=== PATIENT | female | born 1975 | race Caucasian/White ===

== ENCOUNTER → 2022-02-22 09:31 | Outpatient (BNVA) | payer MEDICAID, SELFPAY | PROVIDERS: Referring Provider Internal Medicine; Visit Provider Podiatrist Foot & Ankle Surgery | DX: S82.402A Unspecified fracture of shaft of left fibula, initial encounter for closed fracture (principal); W01.0XXA Fall on same level from slipping, tripping and stumbling without subsequent striking against object, initial encounter; R60.9 Edema, unspecified; E11.9 Type 2 diabetes mellitus without complications | CPT/HCPCS: 73610; 99203 ==

== ENCOUNTER 2022-02-22 10:49 | Outpatient (CLI) | payer MEDICAID, SELFPAY | END 2022-02-22 10:50 | disposition home or self-care (01) | LOC: SPT 10:50 | PROVIDERS: Visit Provider Podiatrist Foot & Ankle Surgery | DX: Z46.89 Encounter for fitting and adjustment of other specified devices (principal); M25.572 Pain in left ankle and joints of left foot | CPT/HCPCS: 97760; L4361 ==

== ENCOUNTER → 2022-03-15 10:20 | Outpatient (BNVA) | payer MEDICAID, SELFPAY | PROVIDERS: Visit Provider Podiatrist Foot & Ankle Surgery | DX: S82.402A Unspecified fracture of shaft of left fibula, initial encounter for closed fracture (principal); X58.XXXA Exposure to other specified factors, initial encounter; R60.9 Edema, unspecified; E11.9 Type 2 diabetes mellitus without complications; Z79.4 Long term (current) use of insulin | CPT/HCPCS: 73610; 99213 ==

== ENCOUNTER 2022-03-18 00:55 | Emergency (ER) | payer MEDICAID, SELFPAY ==
[2022-03-18 00:57] VITALS: BMI 43.8
[2022-03-18 01:00] VITALS: BP 128/87; PULSE 92; RESP 16; TEMP 37.1; O2SAT 96
--- NOTE | 2022-03-18 01:00 | ECG_ITS ---
[facility] Test Date: 2022-03-18 Pat Name: Cat Cartagena Department: Room: Gender: Female Algology Teacher: : 1975 Requested By: Jeff Espinoza Order Number: [id number] Milena MD: Susan Cedillo M.D. Measurements Intervals [place] Rate: 93 P: 26 [place]: 180 QRS: 30 QRSD: 101 T: 48 QT: 394 QTc: 492 Interpretive Statements SINUS RHYTHM POSSIBLE RIGHT VENTRICULAR CONDUCTION DELAY [RSR (QR) IN V1/V2] INTERPRETATION BASED ON A DEFAULT AGE OF 40 YEARS No previous ECG available for comparison Electronically Signed On 03-18-2022 22:56:21 CDT by Susan Cedillo M.D. [id number] f
--- NOTE | 2022-03-18 01:06 | XRR_ITS ---
PROCEDURE INFORMATION: Exam: XR Chest Exam date and time: 03/18/2022 1:34 AM Age: 46 years old Clinical indication: Pain; Chest pressure; Additional info: Cp TECHNIQUE: Imaging protocol: Radiologic exam of the chest. Views: 1 view. COMPARISON: No relevant prior studies available. FINDINGS: Lungs: Layering left pleural effusion cannot be excluded. Similarly, layering smaller right pleural effusion cannot be excluded. Alternatively the opacities along the left more than right lower lobes could be external due to superimposition of shadows. Mild bibasilar opacities may represent atelectasis. Decreased lung volumes and bronchovascular crowding. Suspected mild increased pulmonary vascularity increased pulmonary vascular hilar shadows.. Pleural spaces: Space No pneumothorax. Heart/Mediastinum: The cardiomediastinal silhouette is mildly enlarged on portable view. Bones/joints: Unremarkable. XR/XR chest 1V portable [id number] IMPRESSION: Please see findings.
[2022-03-18 01:13] LABS: Basophils # 0.1 10^3/uL (0.0-0.1); Basophils % 0.6 %; Eosinophils # 0.3 10^3/uL (0.0-0.8); Eosinophils % 3.9 %; Hemoglobin 13.2 g/dL (11.5-15.3); Lymphocytes # 2.3 10^3/uL (0.8-4.8); Lymphocytes % 29.4 %; Mean Corpuscular Hemoglobin 28.4 pg (28.0-34.0); Mean Corpuscular Volume 86.2 fl (81-99); Mean Platelet Volume 11.6 fL (7.4-10.4); Monocytes # 0.6 10^3/uL (0.2-0.9); Monocytes % 7.8 %; Neutrophils # 4.48 10^3/uL (1.8-7.7); Neutrophils % 57.7 %; Nucleated Red Blood Cells % 0 %; Platelet Count 126 10^3/cmm (130-400); Red Blood Count 4.64 10^6/uL (4.1-5.3); Red Cell Distribution Width 15.5 % (12.1-15.1); White Blood Count 7.8 10^3/uL (4.0-10.0)
[2022-03-18 01:15] VITALS: PULSE 91; RESP 15; O2SAT 96
[2022-03-18 01:40] LABS: Troponin(5th) Baseline 6 ng/L (0-10)
[2022-03-18 01:48] LABS: Alanine Aminotransferase 29 U/L (0-33); Albumin Level 3.6 g/dL (3.5-5.2); Alkaline Phosphatase 126 U/L (35-105); Aspartate Amino Transferase 31 U/L (0-32); Blood Urea Nitrogen 12 mg/dL (6-20); Calcium 9.3 mg/dL (8.5-10.5); Carbon Dioxide 25 mmol/L (22-29); Chloride 96 mmol/L (98-107); Creatine Phosphokinase 54 U/L (26-192); Globulin 3.5 g/dL (1.3-4.6); Glomerular Filtration Rate 106.7 mL/min (90-130); Glucose 180 mg/dL (65-115); NT Pro B Type Natriuretic Pept 5 pg/mL (0-125); Osmolality Calculated 276 mOsm/kg (285-295); Sodium 131 mmol/L (136-145); Total Bilirubin 0.4 mg/dL (0.15-1.2); Total Protein 7.1 g/dL (6.6-8.7)
[2022-03-18] MEDS: ondansetron 2 mg/ML SDV 2 mL 4 MG IVP (02:07)
[2022-03-18] MEDS: morphine 4 mg/mL SDV 1 mL IVP (02:07)
[2022-03-18 02:18] LABS: Lipase 46 U/L (13-60)
--- NOTE | 2022-03-18 03:06 | ECG_ITS ---
[facility] Test Date: 2022-03-18 Pat Name: Cat Cartagena Department: Room: Gender: Female Museum Assistant: : 1975 Requested By: Jeff Espinoza Order Number: [id number] Milena MD: Susan Cedillo M.D. Measurements Intervals [place] Rate: 93 P: 26 VT: 180 QRS: 30 QRSD: 101 T: 48 QT: 394 QTc: 492 Interpretive Statements SINUS RHYTHM POSSIBLE RIGHT VENTRICULAR CONDUCTION DELAY [RSR (QR) IN V1/V2] INTERPRETATION BASED ON A DEFAULT AGE OF 40 YEARS No previous ECG available for comparison Electronically Signed On 03-18-2022 23:08:21 CDT by Susan Cedillo M.D. [id number]
[2022-03-18 04:15] VITALS: BP 99/64; PULSE 87; RESP 17; O2SAT 94
[2022-03-18 05:16] VITALS: BP 99/64; PULSE 87; RESP 17; O2SAT 94
--- NOTE | 2022-03-18 05:18 | ED_ITS ---
HPI - Chest Pain General: Chief Complaint: Chest Pain Stated Complaint: cp Time Seen by Provider: 03/18/22 01:06 Source: patient History of Present Illness: 46-year-old female with a history of diabetes and psychiatric disease. She presents with chest discomfort. She has no history of coronary disease. She notes that her chest and belly have been hurting for several days. She states there is mild shortness of breath present. No vomiting. She has had some chronic diarrhea no fever. MD complaint: chest pain Pertinent past history: other Onset (ago): day(s) Timing of current episode: episodic Prior episodes: Yes Pain location: substernal Pain radiation: back and abdomen Quality: sharp Relieving factors: nothing Exacerbating factors: inspiration Associated symptoms: Reports abdominal pain, dyspnea, leg edema, nausea and vomiting; Deny diaphoresis, fever(s), palpitations or syncope Risk Factors: Coronary artery disease risk factors: diabetes Review of Systems Const: Denies: fever(s) or diaphoresis Card: Denies: palpitations or syncope Resp: Reports: dyspnea GI: Reports: abdominal pain, nausea and vomiting Physical Exam Const: COMMON NORMALS: no acute distress GENERAL APPEARANCE: cooperative; not ill appearing and not frail appearing NUTRITIONAL APPEARANCE: overweight HENMT: COMMON NORMALS: normocephalic, atraumatic and Normal external nose present HEAD & SCALP: normocephalic and atraumatic FACE & SINUS: normal facial exam and face symmetric NOSE: Normal external nose present Eye: COMMON NORMALS: Equal, round and reactive pupils present and EOMs intact bilaterally PUPIL: Yes Equal, round and reactive pupils present Neck/C-Spine: GENERAL: Yes trachea midline Chest: CHEST: Yes Symmetrical chest wall rise Resp: COMMON NORMALS: normal respiratory effort, No retractions, No use of accessory muscles and clear to auscultation bilaterally AUSCULTATION: clear to auscultation bilaterally Cardio: COMMON NORMALS: regular rate and regular rhythm RATE: regular rate RHYTHM: regular rhythm GI: COMMON NORMALS: Normal to inspection, nondistended, normoactive bowel sounds present PALPATION: Yes Tenderness to palpation present (GI) Extremity: COMMON NORMALS: normal to inspection and no pedal edema Neuro: ELLIS COMA SCALE: document GCS findings Branscomb coma scale eye opening: Spontaneous Ellis coma scale verbal response: Orientated Ellis coma scale motor response: Obey commands Ellis coma scale total score: 15 SENSORY EXAM: Yes extremities (intact) Psych: COMMON NORMALS: speech normal SPEECH: Yes normal speech Skin: COMMON NORMALS: no rashes or lesions noted GENERAL SKIN EXAM: no rashes or lesions noted Course Vital Signs: Vital signs: Vital Signs Temperature 98.8 F 03/18/22 01:00 Pulse Rate 87 03/18/22 04:15 Respiratory Rate 17 03/18/22 04:15 Blood Pressure 99/64 03/18/22 04:15 Pulse Oximetry 94 03/18/22 04:15 Oxygen Delivery Me thod 03/18/22 04:15 MDM - Chest Pain Medical Decision Making Vitals are stable here. EKG shows sinus rhythm with normal axis and intervals. There is an RSR prime in V1 and V2. No ST or T changes. Rate is 93. Troponin is 6. She has had the symptoms for quite some time, and 1 would expect an elevated troponin by now. Her CBC is not remarkable save a mild thrombocytopenia. Her BMP is not remarkable. Liver enzymes are normal. BNP is 5. Her pain is controlled. She will be allowed home Lab Data : 03/18/22 01:00 03/18/22 01:00 Radiology Impressions Chest X-Ray 03/18/22 01:06 IMPRESSION: Please see findings. Laboratory Results WBC 7.8 10^3/uL (4.0-10.0) 03/18/22 01:00 RBC 4.64 10^6/uL (4.1-5.3) 03/18/22 01:00 Hgb 13.2 g/dL (11.5-15.3) 03/18/22 01:00 Hct 40.0 % (37.0-47.0) 03/18/22 01:00 MCV 86.2 fl (81-99) 03/18/22 01:00 MCH 28.4 pg (28.0-34.0) 03/18/22 01:00 MCHC 33.0 g/dL (30.0-36.0) 03/18/22 01:00 RDW 15.5 % (12.1-15.1) H 03/18/22 01:00 Plt Count 126 10^3/cmm (130-400) L 03/18/22 01:00 MPV 11.6 fL (7.4-10.4) H 03/18/22 01:00 Neut % (Auto) 57.7 % 03/18/22 01:00 Lymph % (Auto) 29.4 % 03/18/22 01:00 [place] % (Auto) 7.8 % 03/18/22 01:00 Eos % (Auto) 3.9 % 03/18/22 01:00 Baso % (Auto) 0.6 % 03/18/22 01:00 Neut # (Auto) 4.48 10^3/uL (1.8-7.7) 03/18/22 01:00 Lymph # (Auto) 2.3 10^3/uL (0.8-4.8) 03/18/22 01:00 [place] # (Auto) 0.6 10^3/uL (0.2-0.9) 03/18/22 01:00 Eos # (Auto) 0.3 10^3/uL (0.0-0.8) 03/18/22 01:00 Baso # (Auto) 0.1 10^3/uL (0.0-0.1) 03/18/22 01:00 Nucleated RBC % (auto) 0 % 03/18/22 01:00 Nucleated RBCs # 0.0 /100WBC 03/18/22 01:00 Sodium 131 mmol/L (136-145) L 03/18/22 01:00 Potassium 4.0 mmol/L (3.5-5.1) 03/18/22 01:00 Chloride 96 mmol/L (98-107) L 03/18/22 01:00 Carbon Dioxide 25 mmol/L (22-29) 03/18/22 01:00 Anion Gap 14.0 (5-19) 03/18/22 01:00 BUN 12 mg/dL (6-20) 03/18/22 01:00 Creatinine 0.6 mg/dL (0.5-0.9) 03/18/22 01:00 GFR Calculation 106.7 mL/min (90-130) 03/18/22 01:00 Glucose 180 mg/dL (65-115) H 03/18/22 01:00 Calculated Osmolality 276 mOsm/kg (285-295) L 03/18/22 01:00 Calcium 9.3 mg/dL (8.5-10.5) 03/18/22 01:00 Total Bilirubin 0.4 mg/dL (0.15-1.2) 03/18/22 01:00 AST 31 U/L (0-32) 03/18/22 01:00 ALT 29 U/L (0-33) 03/18/22 01:00 Alkaline Phosphatase 126 U/L (35-105) H 03/18/22 01:00 Creatine Kinase 54 U/L (26-192) 03/18/22 01:00 Troponin T Baseline 6 ng/L (0-10) 03/18/22 01:00 NT-Pro-B Natriuret Pep 5 pg/mL (0-125) 03/18/22 01:00 Total Protein 7.1 g/dL (6.6-8.7) 03/18/22 01:00 Albumin 3.6 g/dL (3.5-5.2) 03/18/22 01:00 Globulin 3.5 g/dL (1.3-4.6) 03/18/22 01:00 Lipase 46 U/L (13-60) 03/18/22 01:00 Discharge Plan Discharge Patient Disposition: Home Clinical Impression: Atypical chest pain Condition: Stable Prescriptions: No Action acetaminophen 500 mg capsule 500 mg PO Q6H PRN cyclobenzaprine 10 mg tablet 10 mg PO Q12H Qty: 20 0RF Rx Instructions: Take one tablet by mouth every 12 hours as needed aspirin [Adult Aspirin Regimen] 81 mg tablet,delayed release (DR/EC) 81 mg PO DAILY Biofreeze (menthol) 4 % gel 1 applic topical DAILY sucralfate [Carafate] 1 gram tablet 1 g PO BID duloxetine [Cymbalta] 30 mg capsule,delayed release(DR/EC) 30 mg PO DAILY gabapentin 600 mg tablet 600 mg PO TID hydrocodone-acetaminophen 5-325 mg tablet 1 tab PO Q6H PRN hydroxyzine HCl 50 mg tablet 50 mg PO BID ibuprofen 800 mg tablet 800 mg PO Q8H Invega Sustenna 234 mg/1.5 mL syringe 234 mg IM Q30D lamotrigine 200 mg tablet 200 mg PO DAILY losartan 100 mg tablet 100 mg PO DAILY lovastatin 40 mg tablet 40 mg PO DAILY melatonin 5 mg capsule PO metoprolol succinate 50 mg tablet extended release 24 hr 50 mg PO DAILY magnesium hydroxide [Milk of Magnesia] 400 mg/5 mL suspension 5 ml PO DAILY PRN polyethylene glycol 3350 [Miralax] 17 gram/dose powder 4 g PO DAILY alum-mag hydroxide-simeth 200-200-20 mg/5 mL suspension 20 ml PO TID PRN Rx Instructions: administer between meals insulin aspart U-100 [Novolog Flexpen U-100 Insulin] 100 unit/mL (3 mL) insulin pen 20 unit SUBCUT TID omeprazole 20 mg capsule,delayed release(DR/EC) 20 mg PO DAILY prednisone 20 mg tablet 20 mg PO DAILY Tresiba FlexTouch U-100 100 unit/mL (3 mL) insulin pen 100 unit SUBCUT DAILY cetirizine [Zyrtec] 10 mg tablet 10 mg PO DAILY PRN (DME) CAM boot See Rx Instructions .Route .MEDSUPPLY Qty: 1 0RF Rx Instructions: As directed Discharge Orders: Discharge ED (Routine); Ordered 03/18/22 Ordered By: Jeff Isbell Patient Instructions: Chest Pain (ED), Opioid Safety, Pain Management Activity Restrictions/Additional Instructions: Return for fever, shortness of breath, vomiting liquids or medications, worsening pain despite treatment, other concerning symptoms. Treat the discomfort with anti-inflammatory pain medications such as ibuprofen scheduled daily for the next 3 days then as needed Coding Level of Care Code ED Nutrition Therapist for Jocy Alarcon
== END 2022-03-18 09:30 | disposition home or self-care (01) ==
PROVIDERS: Emergency Provider Emergency Medicine
DX: R07.89 Other chest pain (principal); Z79.82 Long term (current) use of aspirin; Z79.4 Long term (current) use of insulin
CPT/HCPCS: 71045; 80053; 82550; 83690; 83880; 84484; 85025; 93005; 96374; 96375; 99285; J2270; J2405

== ENCOUNTER 2022-03-23 23:33 | Emergency (ER) | payer MEDICAID, SELFPAY ==
[2022-03-23 23:37] VITALS: BP 147/95; PULSE 88; RESP 17; TEMP 36.1; O2SAT 97; BMI 43.8
--- NOTE | 2022-03-24 | W.ED.PSYCHS ---
Documented by User: STEPHANI Graham 03/24/22 13:10 HPI - Psych General: Chief Complaint: Psychiatric Symptoms Stated Complaint: SI Time Seen by Provider: 03/23/22 23:36 History of Present Illness: Patient is a 47-year-old female comes to the ED with SI and auditory hallucinations. Patient has a history of schizophrenia and currently resides at [facility] for psych and behavioral issues. She was sent here to the ED via EMS for psych eval. Patient hears voices in her head that are telling her that they are going to hurt her. She endorses having thoughts of SI and states she has a plan to cut her wrist. She endorses some increased stress at the facility recently which are causing worsening symptoms. Patient is on psych meds and has been taking them as prescribed. Denies any visual hallucinations or HI. Associated symptoms: Reports auditory hallucinations and suicidal ideation; Deny visual hallucinations or homicidal ideation Review of Systems Const: Denies: fever(s), chills or fatigue Eyes: Denies: change in vision or eye discomfort ENMT: Denies: throat pain, odynophagia, nasal discharge or nasal congestion Card: Denies: chest pain, palpitations, edema, swelling of feet/ankles, dyspnea on exertion or orthopnea Resp: Denies: dyspnea, productive cough or non-productive cough GI: Denies: abdominal pain, nausea, vomiting, diarrhea, constipation or hematochezia : Denies: flank pain, dysuria or hematuria Musc: Denies: neck pain, back pain or extremity swelling Skin/Breast: Denies: rash or new lesions Neuro: Denies: headache(s), numbness in extremities or weakness in extremities Psych: Reports: auditory hallucinations and suicidal ideation; Denies: visual hallucinations or homicidal ideation [facility] ED PFSH: Medical History No pertinent family history Type 2 diabetes mellitus Physical Exam Const: COMMON NORMALS: patient oriented x3 GENERAL APPEARANCE: cooperative NUTRITIONAL APPEARANCE: obese HENMT: COMMON NORMALS: normocephalic HEAD & SCALP: normocephalic MOUTH: Normal oral and palatal mucosa present THROAT: posterior oropharynx normal and uvula midline Eye: COMMON NORMALS: Equal, round and reactive pupils present and conjunctivae normal CONJUNCTIVA: Yes conjunctivae normal PUPIL: Yes Equal, round and reactive pupils present Neck/C-Spine: COMMON NORMALS: supple GENERAL: Yes normal visual inspection Resp: COMMON NORMALS: normal respiratory effort, No retractions, No use of accessory muscles and clear to auscultation bilaterally AUSCULTATION: clear to auscultation bilaterally Cardio: COMMON NORMALS: regular rate, regular rhythm, S1 normal heart sound present, S2 normal heart sound present, No gallops present (Cardio), No clicks present (Cardio), No murmurs present (Cardio) and Peripheral pulses 2+ throughout RATE: regular rate RHYTHM: regular rhythm HEART SOUNDS: S1 normal heart sound present and S2 normal heart sound present PERIPHERAL PULSES: Peripheral pulses 2+ throughout GI: COMMON NORMALS: Normal to inspection, nondistended, normoactive bowel sounds present, Soft to palpation, non-tender and no masses PALPATION: Yes Soft to palpation : COMMON NORMALS: Yes no CVA tenderness BLADDER/KIDNEY EXAM: Yes no CVA tenderness Back/Pelvis: COMMON NORMALS: no CVA tenderness Neuro: COMMON NORMALS: patient oriented x3 GAIT: Yes Normal gait present Psych: COMMON NORMALS: mental status grossly normal, cooperative, normal affect, speech normal and denies homicidal ideation ATTITUDE: Yes calm ACTIVITY/MOTOR BEHAVIOR: Yes appropriate eye contact SPEECH: Yes normal speech THOUGHT CONTENT: Yes Suicidality present and Yes Hallucination(s) present auditory (Hears voices telling her they will hurt her) Skin: GENERAL SKIN EXAM: dry skin Course Vital Signs: Vital signs: Vital Signs Temperature 98.4 F 03/24/22 05:28 Pulse Rate 86 03/24/22 05:28 Respiratory Rate 18 03/24/22 05:28 Blood Pressure 122/87 03/24/22 05:28 Pulse Oximetry 94 03/24/22 05:28 Oxygen Delivery Me thod 03/24/22 05:28 MDM - Psych Medical Decision Making 47-year-old female who resides in a retirement environment. She has a history of schizophrenia. She notes that she has been hearing voices telling her to harm her self. She had a plan to cut her wrist earlier. She was checked out to me by the previous physician's curatorial assistant at shift change. Facility sent her here for psychiatric evaluation given her recent increase in hallucinations and suicidal ideation. We have no beds at this facility available currently. We are attempting to find her a bed in appropriate psychiatric facility. Her laboratory shows mild thrombocytopenia, with a nonremarkable BMP. Liver function is normal. Urine drug screen and alcohol are negative. Medically, she is quite stable. She will have to be checked out to the next oncoming physician pending placement. Pt was transferred to outside Lab Data I reviewed the patient's lab results. : 03/23/22 23:36 03/23/22 00:00 Laboratory Results WBC 7.6 10^3/uL (4.0-10.0) 03/23/22 23:36 RBC 4.43 10^6/uL (4.1-5.3) 03/23/22 23:36 Hgb 12.5 g/dL (11.5-15.3) 03/23/22 23:36 Hct 38.8 % (37.0-47.0) 03/23/22 23:36 MCV 87.6 fl (81-99) 03/23/22 23:36 MCH 28.2 pg (28.0-34.0) 03/23/22 23:36 MCHC 32.2 g/dL (30.0-36.0) 03/23/22 23:36 RDW 15.3 % (12.1-15.1) H 03/23/22 23:36 Plt Count 114 10^3/cmm (130-400) L 03/23/22 23:36 MPV 11.6 fL (7.4-10.4) H 03/23/22 23:36 Neut % (Auto) 61.2 % 03/23/22 23:36 Lymph % (Auto) 26.8 % 03/23/22 23:36 [place] % (Auto) 7.8 % 03/23/22 23:36 Eos % (Auto) 2.9 % 03/23/22 23:36 Baso % (Auto) 0.8 % 03/23/22 23:36 Neut # (Auto) 4.62 10^3/uL (1.8-7.7) 03/23/22 23:36 Lymph # (Auto) 2.0 10^3/uL (0.8-4.8) 03/23/22 23:36 [place] # (Auto) 0.6 10^3/uL (0.2-0.9) 03/23/22 23:36 Eos # (Auto) 0.2 10^3/uL (0.0-0.8) 03/23/22 23:36 Baso # (Auto) 0.1 10^3/uL (0.0-0.1) 03/23/22 23:36 Nucleated RBC % (auto) 0 % 03/23/22 23:36 Nucleated RBCs # 0.0 /100WBC 03/23/22 23:36 Sodium 136 mmol/L (136-145) 03/23/22 00:00 Potassium 4.1 mmol/L (3.5-5.1) 03/23/22 00:00 Chloride 101 mmol/L (98-107) 03/23/22 00:00 Carbon Dioxide 25 mmol/L (22-29) 03/23/22 00:00 Anion Gap 14.1 (5-19) 03/23/22 00:00 BUN 7 mg/dL (6-20) 03/23/22 00:00 Creatinine 0.5 mg/dL (0.5-0.9) 03/23/22 00:00 GFR Calculation 131.1 mL/min (90-130) H 03/23/22 00:00 Glucose 142 mg/dL (65-115) H 03/23/22 00:00 Calculated Osmolality 282 mOsm/kg (285-295) L 03/23/22 00:00 Calcium 9.2 mg/dL (8.5-10.5) 03/23/22 00:00 Total Bilirubin 0.4 mg/dL (0.15-1.2) 03/23/22 00:00 AST 25 U/L (0-32) 03/23/22 00:00 ALT 29 U/L (0-33) 03/23/22 00:00 Alkaline Phosphatase 128 U/L (35-105) H 03/23/22 00:00 Total Protein 7.1 g/dL (6.6-8.7) 03/23/22 00:00 Albumin 3.6 g/dL (3.5-5.2) 03/23/22 00:00 Globulin 3.5 g/dL (1.3-4.6) 03/23/22 00:00 HCG, Qual Negative (Negative) 03/23/22 00:00 Urine Color Yellow (Yellow) 03/24/22 00:40 Urine Appearance Clear (CLEAR) 03/24/22 00:40 Urine pH 7 (5-7) 03/24/22 00:40 Ur Specific [place] 1.005 (1.005-1.030) 03/24/22 00:40 Urine Protein Neg (Negative) 03/24/22 00:40 Urine Glucose (UA) Norm (Normal) 03/24/22 00:40 Urine Ketones Negative (Negative) 03/24/22 00:40 Urine Blood Neg (Negative) 03/24/22 00:40 Urine Nitrate Negative (Negative) 03/24/22 00:40 Urine Bilirubin Neg (Negative) 03/24/22 00:40 Urine Urobilinogen Neg mg/dL (Negative) 03/24/22 00:40 Ur Leukocyte Esterase Negative (Negative) 03/24/22 00:40 Salicylates < 0.3 mg/dL (3-10) L 03/23/22 00:00 Urine Opiates Screen Positive ng/mL (Negative) H 03/24/22 00:40 Acetaminophen < 5.0 ug/mL (10-30) L 03/23/22 00:00 Ur Barbiturates Screen Negative ng/mL (Negative) 03/24/22 00:40 Ur Phencyclidine Scrn Negative ng/mL (Negative) 03/24/22 00:40 Ur Amphetamines Screen Negative ng/mL (Negative) 03/24/22 00:40 U Benzodiazepines Scrn Negative ng/mL (Negative) 03/24/22 00:40 Urine Cocaine Screen Negative ng/mL (Negative) 03/24/22 00:40 U Marijuana (THC) Screen Negative ng/mL (Negative) 03/24/22 00:40 Ethyl Alcohol < 10 mg/dL (0-10) 03/23/22 00:00 SARS-CoV-2 Ag (Rapid) negative (Negative) 03/24/22 03:35 Discharge Plan Discharge Patient Disposition: Xfer Psychiatric Hosp Clinical Impression: Suicidal ideation, Chronic schizophrenia Condition: Stable Coding Level of Care Code ED Vice President Of Compliance for Maribelg Fwd Exam Comprehensive Documented by User: Jeff Espinoza Sukhi, 03/24/22 06:14 HPI - Psych General: Chief Complaint: Psychiatric Symptoms Stated Complaint: SI Time Seen by Provider: 03/23/22 23:36 PFS ED PFSH: Medical History No pertinent family history Type 2 diabetes mellitus Course Vital Signs: Vital signs: Vital Signs Temperature 98.4 F 03/24/22 05:28 Pulse Rate 86 03/24/22 05:28 Respiratory Rate 18 03/24/22 05:28 Blood Pressure 122/87 03/24/22 05:28 Pulse Oximetry 94 03/24/22 05:28 Oxygen Delivery Me thod 03/24/22 05:28 MDM - Psych Medical Decision Making 47-year-old female who resides in a retirement environment. She has a history of schizophrenia. She notes that she has been hearing voices telling her to harm her self. She had a plan to cut her wrist earlier. She was checked out to me by the previous physician's curatorial assistant at shift change. Facility sent her here for psychiatric evaluation given her recent increase in hallucinations and suicidal ideation. We have no beds at this facility available currently. We are attempting to find her a bed in appropriate psychiatric facility. Her laboratory shows mild thrombocytopenia, with a nonremarkable BMP. Liver function is normal. Urine drug screen and alcohol are negative. Medically, she is quite stable. She will have to be checked out to the next oncoming physician pending placement. Lab Data : 03/23/22 23:36 03/23/22 00:00 Laboratory Results WBC 7.6 10^3/uL (4.0-10.0) 03/23/22 23:36 RBC 4.43 10^6/uL (4.1-5.3) 03/23/22 23:36 Hgb 12.5 g/dL (11.5-15.3) 03/23/22 23:36 Hct 38.8 % (37.0-47.0) 03/23/22 23:36 MCV 87.6 fl (81-99) 03/23/22 23:36 MCH 28.2 pg (28.0-34.0) 03/23/22 23:36 MCHC 32.2 g/dL (30.0-36.0) 03/23/22 23:36 RDW 15.3 % (12.1-15.1) H 03/23/22 23:36 Plt Count 114 10^3/cmm (130-400) L 03/23/22 23:36 MPV 11.6 fL (7.4-10.4) H 03/23/22 23:36 Neut % (Auto) 61.2 % 03/23/22 23:36 Lymph % (Auto) 26.8 % 03/23/22 23:36 [place] % (Auto) 7.8 % 03/23/22 23:36 Eos % (Auto) 2.9 % 03/23/22 23:36 Baso % (Auto) 0.8 % 03/23/22 23:36 Neut # (Auto) 4.62 10^3/uL (1.8-7.7) 03/23/22 23:36 Lymph # (Auto) 2.0 10^3/uL (0.8-4.8) 03/23/22 23:36 [place] # (Auto) 0.6 10^3/uL (0.2-0.9) 03/23/22 23:36 Eos # (Auto) 0.2 10^3/uL (0.0-0.8) 03/23/22 23:36 Baso # (Auto) 0.1 10^3/uL (0.0-0.1) 03/23/22 23:36 Nucleated RBC % (auto) 0 % 03/23/22 23:36 Nucleated RBCs # 0.0 /100WBC 03/23/22 23:36 Sodium 136 mmol/L (136-145) 03/23/22 00:00 Potassium 4.1 mmol/L (3.5-5.1) 03/23/22 00:00 Chloride 101 mmol/L (98-107) 03/23/22 00:00 Carbon Dioxide 25 mmol/L (22-29) 03/23/22 00:00 Anion Gap 14.1 (5-19) 03/23/22 00:00 BUN 7 mg/dL (6-20) 03/23/22 00:00 Creatinine 0.5 mg/dL (0.5-0.9) 03/23/22 00:00 GFR Calculation 131.1 mL/min (90-130) H 03/23/22 00:00 Glucose 142 mg/dL (65-115) H 03/23/22 00:00 Calculated Osmolality 282 mOsm/kg (285-295) L 03/23/22 00:00 Calcium 9.2 mg/dL (8.5-10.5) 03/23/22 00:00 Total Bilirubin 0.4 mg/dL (0.15-1.2) 03/23/22 00:00 AST 25 U/L (0-32) 03/23/22 00:00 ALT 29 U/L (0-33) 03/23/22 00:00 Alkaline Phosphatase 128 U/L (35-105) H 03/23/22 00:00 Total Protein 7.1 g/dL (6.6-8.7) 03/23/22 00:00 Albumin 3.6 g/dL (3.5-5.2) 03/23/22 00:00 Globulin 3.5 g/dL (1.3-4.6) 03/23/22 00:00 HCG, Qual Negative (Negative) 03/23/22 00:00 Urine Color Yellow (Yellow) 03/24/22 00:40 Urine Appearance Clear (CLEAR) 03/24/22 00:40 Urine pH 7 (5-7) 03/24/22 00:40 Ur Specific [place] 1.005 (1.005-1.030) 03/24/22 00:40 Urine Protein Neg (Negative) 03/24/22 00:40 Urine Glucose (UA) Norm (Normal) 03/24/22 00:40 Urine Ketones Negative (Negative) 03/24/22 00:40 Urine Blood Neg (Negative) 03/24/22 00:40 Urine Nitrate Negative (Negative) 03/24/22 00:40 Urine Bilirubin Neg (Negative) 03/24/22 00:40 Urine Urobilinogen Neg mg/dL (Negative) 03/24/22 00:40 Ur Leukocyte Esterase Negative (Negative) 03/24/22 00:40 Salicylates < 0.3 mg/dL (3-10) L 03/23/22 00:00 Urine Opiates Screen Positive ng/mL (Negative) H 03/24/22 00:40 Acetaminophen < 5.0 ug/mL (10-30) L 03/23/22 00:00 Ur Barbiturates Screen Negative ng/mL (Negative) 03/24/22 00:40 Ur Phencyclidine Scrn Negative ng/mL (Negative) 03/24/22 00:40 Ur Amphetamines Screen Negative ng/mL (Negative) 03/24/22 00:40 U Benzodiazepines Scrn Negative ng/mL (Negative) 03/24/22 00:40 Urine Cocaine Screen Negative ng/mL (Negative) 03/24/22 00:40 U Marijuana (THC) Screen Negative ng/mL (Negative) 03/24/22 00:40 Ethyl Alcohol < 10 mg/dL (0-10) 03/23/22 00:00 SARS-CoV-2 Ag (Rapid) negative (Negative) 03/24/22 03:35 Discharge Plan Discharge Patient Disposition: Xfer Psychiatric Hosp Clinical Impression: Suicidal ideation, Chronic schizophrenia Condition: Stable Coding Level of Care Code ED Vice President Of Compliance for Jocy Fwd Exam Comprehensive
[2022-03-24 00:13] LABS: Basophils # 0.1 10^3/uL (0.0-0.1); Basophils % 0.8 %; Eosinophils # 0.2 10^3/uL (0.0-0.8); Eosinophils % 2.9 %; Hematocrit 38.8 % (37.0-47.0); Hemoglobin 12.5 g/dL (11.5-15.3); Lymphocytes % 26.8 %; Mean Corpuscular HGB Conc 32.2 g/dL (30.0-36.0); Mean Corpuscular Hemoglobin 28.2 pg (28.0-34.0); Mean Corpuscular Volume 87.6 fl (81-99); Mean Platelet Volume 11.6 fL (7.4-10.4); Monocytes # 0.6 10^3/uL (0.2-0.9); Monocytes % 7.8 %; Neutrophils # 4.62 10^3/uL (1.8-7.7); Neutrophils % 61.2 %; Nucleated Red Blood Cells % 0 %; Platelet Count 114 10^3/cmm (130-400); Red Blood Count 4.43 10^6/uL (4.1-5.3); Red Cell Distribution Width 15.3 % (12.1-15.1); White Blood Count 7.6 10^3/uL (4.0-10.0)
[2022-03-24 00:26] LABS: HCG, Serum Qual Negative (Negative)
[2022-03-24 00:35] LABS: Alanine Aminotransferase 29 U/L (0-33); Albumin Level 3.6 g/dL (3.5-5.2); Alkaline Phosphatase 128 U/L (35-105); Anion Gap 14.1 (5-19); Aspartate Amino Transferase 25 U/L (0-32); Blood Urea Nitrogen 7 mg/dL (6-20); Calcium 9.2 mg/dL (8.5-10.5); Carbon Dioxide 25 mmol/L (22-29); Chloride 101 mmol/L (98-107); Globulin 3.5 g/dL (1.3-4.6); Glomerular Filtration Rate 131.1 mL/min (90-130); Glucose 142 mg/dL (65-115); Osmolality Calculated 282 mOsm/kg (285-295); Potassium 4.1 mmol/L (3.5-5.1); Sodium 136 mmol/L (136-145); Total Bilirubin 0.4 mg/dL (0.15-1.2); Total Protein 7.1 g/dL (6.6-8.7)
[2022-03-24 00:44] LABS: Acetaminophen < 5.0 ug/mL (10-30); Alcohol Level < 10 mg/dL (0-10); Salicylate < 0.3 mg/dL (3-10)
[2022-03-24 00:50] LABS: Add Urine Microscopic? NO; Charge for UA Resulting for Rev
[2022-03-24 00:52] LABS: Bilirubin Urine Neg (Negative); Blood Urine Neg (Negative); Glucose Urine UA Norm (Normal); Ketones Urine Negative (Negative); Leukocyte Esterase Urine Negative (Negative); Nitrate Urine Negative (Negative); Protein Urine Neg (Negative); Specific Gravity, Urine 1.005 (1.005-1.030); Urine Appearance Clear (CLEAR); Urine Color Yellow (Yellow); Urobilinogen Urine Neg (Negative); pH Urine 7 (5-7)
[2022-03-24 01:01] LABS: Amphetamines Screen Urine Negative (Negative); Barbiturates Screen Urine Negative (Negative); Benzodiazepines Screen Urine Negative (Negative); Cocaine Screen Urine Negative (Negative); Opiate Screen Urine Positive (Negative); PCP Screen Urine Negative (Negative); THC Screen Urine Negative (Negative)
[2022-03-24] MEDS: LORazepam 2 mg Tablet PO (01:14)
[2022-03-24 04:03] LABS: SARS Covid-2 Antigen negative (Negative)
[2022-03-24 05:28] VITALS: BP 122/87; PULSE 86; RESP 18; TEMP 36.9; O2SAT 94
--- NOTE | 2022-03-24 07:42 | PC.NURSE ---
report MARTINE Ron [id number]
[2022-03-24] MEDS: HYDROcodone-acetaminophen 5-325 mg Tablet 1 TAB PO (10:08)
== END 2022-03-24 11:50 ==
PROVIDERS: Physician Assistant; Emergency Provider Emergency Medicine
DX: R45.851 Suicidal ideations (principal); F20.9 Schizophrenia, unspecified; E11.9 Type 2 diabetes mellitus without complications; Z20.822 Contact with and (suspected) exposure to COVID-19
CPT/HCPCS: 80053; 80306; 80307; 81003; 84703; 85025; 87426; 99283

== ENCOUNTER 2022-04-08 06:00 | Outpatient (CLI) | payer MEDICAID, SELFPAY | END 2022-04-08 06:01 | disposition home or self-care (01) | LOC: SPT 04-20 10:22 | PROVIDERS: PCP Internal Medicine; Visit Provider Podiatrist Foot & Ankle Surgery | DX: Z46.89 Encounter for fitting and adjustment of other specified devices (principal); S82.402D Unspecified fracture of shaft of left fibula, subsequent encounter for closed fracture with routine healing; X58.XXXD Exposure to other specified factors, subsequent encounter | CPT/HCPCS: 99213; L1902 ==

== ENCOUNTER → 2022-04-08 08:07 | Outpatient (BNVA) | payer MEDICAID, SELFPAY | PROVIDERS: PCP Internal Medicine; Visit Provider Podiatrist Foot & Ankle Surgery | DX: S82.402A Unspecified fracture of shaft of left fibula, initial encounter for closed fracture (principal); X58.XXXA Exposure to other specified factors, initial encounter; R60.9 Edema, unspecified; E11.9 Type 2 diabetes mellitus without complications; Z79.4 Long term (current) use of insulin | CPT/HCPCS: 73610 ==

== ENCOUNTER → 2022-05-02 08:42 | Outpatient (BNVA) | payer MEDICAID, SELFPAY | PROVIDERS: PCP Family Medicine; Visit Provider Podiatrist Foot & Ankle Surgery | DX: S82.402A Unspecified fracture of shaft of left fibula, initial encounter for closed fracture (principal); R60.9 Edema, unspecified; E11.9 Type 2 diabetes mellitus without complications; X58.XXXA Exposure to other specified factors, initial encounter; Z79.4 Long term (current) use of insulin | CPT/HCPCS: 99213 ==

== ENCOUNTER → 2022-09-10 08:02 | Outpatient (BNVA) | payer MEDICAID, SELFPAY | PROVIDERS: PCP Family Medicine; Visit Provider Orthopaedic Surgery | DX: M19.012 Primary osteoarthritis, left shoulder (principal) | CPT/HCPCS: 20610; 73030; 99204; J0702; J3490 ==

== ENCOUNTER → 2022-10-22 08:02 | Outpatient (BNVA) | payer MEDICAID, SELFPAY | PROVIDERS: PCP Family Medicine; Visit Provider Nurse Practitioner Family | DX: M19.012 Primary osteoarthritis, left shoulder (principal) | CPT/HCPCS: 99213 ==

== ENCOUNTER 2022-11-09 18:15 | Emergency (ER) | payer MEDICAID, SELFPAY ==
[2022-11-09 18:17] VITALS: BP 178/112; PULSE 89; RESP 15; TEMP 36.8; O2SAT 96
[2022-11-09 18:27] VITALS: PULSE 89; O2SAT 96
--- NOTE | 2022-11-09 18:30 | ED_ITS ---
HPI - Back Pain/Injury General: Chief Complaint: Urogenital-Female Stated Complaint: RIGHT FLANK PAIN Time Seen by Provider: 11/09/22 18:18 Source: patient Mode of arrival: EMS Limitations: no limitations History of Present Illness: Patient is a 47-year-old female who presents to ED today via EMS for treatment of back and flank pains. Patient tells me that she has bilateral flank pains and is concerned for a kidney stone. She states she has never had a kidney stone before. Back pain was not acute onset she again states it affects both sides. She has not been experiencing hematuria. Patient states she is having some burning with urination as well as urinary urgency and frequency. Having ernesto e suprapubic abdominal pain. No fevers. MD elicited complaint: back pain Pertinent past history: prior back pain Onset (ago): day(s) Timing: constant Location: lumbar spine, thoracic spine, left flank and right flank Associated symptoms: Reports dysuria and urinary urgency; Deny abdominal pain, chills, change in bowel habits, fatigue, fever(s), nausea, syncope or vomiting Review of Systems Const: Denies: fever(s), chills, body aches, fatigue or malaise Card: Denies: chest pain, syncope or pre-syncope Resp: Denies: dyspnea GI: Denies: abdominal pain, nausea, vomiting, diarrhea or change in bowel habits : Reports: dysuria, urinary frequency and urinary urgency; Denies: flank pain, difficulty voiding, urinary hesitancy, dribbling, oliguria, urinary incontinence, vaginal bleeding or pelvic pain Musc: Reports: back pain; Denies: neck pain, extremity pain, extremity swelling, joint pain or joint swelling Skin/Breast: Denies: rash Neuro: Denies: headache(s), numbness in extremities, weakness in extremities, sensory changes or dizziness PFS ED PFSH: Medical History Bipolar disorder Guardianship No pertinent family history Person, living, residential institution Psychiatric care Substance abuse Type 2 diabetes mellitus Physical Exam Const: COMMON NORMALS: no acute distress, patient oriented x3, no limitations, alert and well nourished GENERAL APPEARANCE: cooperative NUTRITIONAL APPEARANCE: obese morbidly obese ORIENTATION/CONSCIOUSNESS: Yes awake, Yes oriented to person, Yes oriented to place and Yes oriented to time Chest: COMMONS NORMALS: normal inspection of the chest and normal palpation of entire chest wall Resp: COMMON NORMALS: normal respiratory effort and clear to auscultation bilaterally AUSCULTATION: clear to auscultation bilaterally Cardio: COMMON NORMALS: regular rate and regular rhythm RATE: regular rate RHYTHM: regular rhythm GI: COMMON NORMALS: Normal to inspection, nondistended, normoactive bowel sounds present, Soft to palpation, non-tender, No hepatosplenomegaly present and no masses PALPATION: Yes Soft to palpation and Yes No hepatosplenomegaly present : BLADDER/KIDNEY EXAM: Yes CVA tenderness (reports very minor tenderness over both flanks) Back/Pelvis: GENERAL BACK: Yes CVA tenderness (reports very minor tenderness over both flanks) THORACIC SPINE/UPPER BACK: Yes normal to inspection, Yes thoracic ROM normal, Yes thoracic spinal tenderness, No paraspinal muscle tenderness and No paraspinal muscle spasm LUMBAR SPINE/LOWER BACK: Yes normal to inspection, Yes lumbar ROM normal, Yes lumbar spinal tenderness, No paraspinal muscle tenderness and No paraspinal muscle spasm PELVIS: Yes buttocks normal SACROILIAC JOINTS: Yes SI joints normal SACRUM: no tenderness COCCYX: no tenderness BACK IMAGE (FEMALE): 1. TTP Extremity: COMMON NORMALS: normal to inspection, capillary refill normal and no clubbing, cyanosis or edema GENERAL: Yes normal exam except as noted Neuro: BLAINE COMA SCALE: document GCS findings [place] coma scale eye opening: Spontaneous [place] coma scale verbal response: Orientated [place] coma scale motor response: Obey commands [place] coma scale total score: 15 COMMON NORMALS: patient oriented x3, moves all extremities, no focal motor deficits and no sensory deficits noted SENSORIUM/ORIENTATION: Yes alert, Yes oriented to person, Yes oriented to place and Yes oriented to time Skin: COMMON NORMALS: no rashes or lesions noted GENERAL SKIN EXAM: no rashes or lesions noted Course Vital Signs: Vital signs: Vital Signs Temperature 98.2 F 11/09/22 18:17 Pulse Rate 81 11/10/22 00:24 Respiratory Rate 18 11/10/22 00:24 Blood Pressure 151/92 11/10/22 00:24 Pulse Oximetry 96 11/10/22 00:24 Oxygen Delivery Me thod Room Air 11/09/22 23:54 MDM - Back Pain/Injury Medical Decision Making Patient appears in no acute distress. Her vital signs are stable. White count is normal. Chemistry showing some elevated liver enzymes. UA was cloudy with 2+ leuks and 10-15 WBCs. She does have mild perinephric edema bilaterally that may reflect renal insufficiency however clinical correlation for pyelonephritis was recommended. She does have dysuria, urinary frequency and urgency and coupled with results of her UA-she does need coverage for Zane. She has a fatty cirrhotic liver. This was discussed with her and she will follow-up with primary care who can refer her to a director of pupil personnel program. Patient was given a dose of Rocephin prior to discharge and will be placed on Cipro. Return ED precautions given. Labs 11/09/22 17:24 11/09/22 17:24 Radiology Impressions Abdomen/Pelvis CT 11/09/22 19:23 IMPRESSION: 1. Mild perinephric edema bilaterally may reflect renal insufficiency, please correlate for pyelonephritis. 2. Patchy bilateral dependent airspace infiltrates. 3. Coronary artery atherosclerotic calcifications. 4. Hepatic steatosis. 5. Cirrhotic liver. 6. Spleen enlarged to 17 cm. 7. Cholecystectomy. 8. Small amount of abdominal ascites. 9. Bilateral L4 pars interarticularis defects, chronic. Laboratory Results WBC 7.3 10^3/uL (4.0-10.0) 11/09/22 17: RBC 4.50 10^6/uL (4.1-5.3) 11/09/22 17:24 Hgb 12.8 g/dL (11.5-15.3) 11/09/22 17: Hct 39.7 % (37.0-47.0) 11/09/22 17: MCV 88.2 fl (81-99) 11/09/22 17: MCH 28.4 pg (28.0-34.0) 11/09/22 17: MCHC 32.2 g/dL (30.0-36.0) 11/09/22 17: RDW 15.2 % (12.1-15.1) H 11/09/22 17:24 Plt Count 94 10^3/cmm (130-400) L 11/09/22 17: MPV 11.2 fL (7.4-10.4) H 11/09/22 17: Neut % (Auto) 57.5 % 11/09/22 17:24 Lymph % (Auto) 29.9 % 11/09/22 17:24 [place] % (Auto) 7.6 % 11/09/22 17:24 Eos % (Auto) 3.8 % 11/09/22 17: Baso % (Auto) 0.8 % 11/09/22 17: Neut # (Auto) 4.18 10^3/uL (1.8-7.7) 11/09/22: Lymph # (Auto) 2.2 10^3/uL (0.8-4.8) 11/09/22: [place] # (Auto) 0.6 10^3/uL (0.2-0.9) 11/09/22: Eos # (Auto) 0.3 10^3/uL (0.0-0.8) 11/09/22: Baso # (Auto) 0.1 10^3/uL (0.0-0.1) 11/09/22 17: Nucleated RBC % (auto) 0 % 11/09/22: Nucleated RBCs # 0.0 /100WBC 11/09/22 17:24 Sodium 129 mmol/L (136-145) L 11/09/22 17:24 Potassium 3.4 mmol/L (3.5-5.1) L 11/09/22 17: Chloride 94 mmol/L (98-107) L 11/09/22 17: Carbon Dioxide 24 mmol/L (22-29) 11/09/22: Anion Gap 14.4 (5-19) 11/09/22 17: BUN 4 mg/dL (6-20) L 11/09/22 17:24 Creatinine 0.6 mg/dL (0.5-0.9) 11/09/22 17:24 GFR Calculation 106.3 mL/min (90-130) 11/09/22 17: Glucose 220 mg/dL (65-115) H 11/09/22 17:24 Calculated Osmolality 272 mOsm/kg (285-295) L 11/09/22 17:24 Calcium 8.5 mg/dL (8.5-10.5) 11/09/22 17: Total Bilirubin 0.3 mg/dL (0.15-1.2) 11/09/22 17:24 AST 34 U/L (0-32) H 11/09/22 17:24 ALT 38 U/L (0-33) H 11/09/22 17:24 Alkaline Phosphatase 110 U/L (35-105) H 11/09/22 17:24 Total Protein 7.2 g/dL (6.6-8.7) 11/09/22 17: Albumin 4.2 g/dL (3.5-5.2) 11/09/22 17: Globulin 3.0 g/dL (1.3-4.6) 11/09/22 17:24 Urine Color Yellow (Yellow) 11/09/22 18:35 Urine Appearance Cloudy (CLEAR) A 11/09/22 18:35 Urine pH 7 (5-7) 11/09/22 18:35 Ur Specific [place] 1.005 (1.005-1.030) 11/09/22 18:35 Urine Protein Neg (Negative) 11/09/22 18:35 Urine Glucose (UA) Norm (Normal) 11/09/22 18:35 Urine Ketones Negative (Negative) 11/09/22 18:35 Urine Blood Trace (Negative) H 11/09/22 18:35 Urine Nitrate Negative (Negative) 11/09/22 18:35 Urine Bilirubin Neg (Negative) 11/09/22 18:35 Urine Urobilinogen Norm mg/dL (Negative) 11/09/22 18:35 Ur Leukocyte Esterase 2+ (Negative) H 11/09/22 18:35 Urine RBC 0-4 /hpf (0-2) H 11/09/22 18:35 Urine WBC 10-15 /hpf (0-5) H 11/09/22 18:35 Ur Squamous Epith Cells 0-4 /hpf (0-5) H 11/09/22 18:35 Amorphous Sediment Not Reportable 11/09/22 18:35 Urine Bacteria Trace /hpf (NONE) 11/09/22 18:35 Discharge Plan Discharge Patient Disposition: Home Clinical Impression: Pyelonephritis Condition: Stable Prescriptions: New Cipro 500 mg tablet 500 mg PO Q12H Qty: 14 0RF No Action acetaminophen 500 mg capsule 500 mg PO Q8H PRN (Reason: Pain) aspirin [Adult Aspirin Regimen] 81 mg tablet,delayed release (DR/EC) 81 mg PO DAILY hydrocodone-acetaminophen 5-325 mg tablet 1 tab PO Q6H PRN (Reason: Pain) losartan 100 mg tablet 100 mg PO BEDTIME lovastatin 40 mg tablet 40 mg PO DAILY metoprolol succinate 50 mg tablet extended release 24 hr 50 mg PO DAILY magnesium hydroxide [Milk of Magnesia] 400 mg/5 mL suspension 30 ml PO DAILY PRN (Reason: Constipation) polyethylene glycol 3350 [Miralax] 17 gram/dose powder 17 g PO DAILY PRN (Reason: Constipation) alum-mag hydroxide-simeth 200-200-20 mg/5 mL suspension 30 ml PO Q6H PRN (Reason: upset stomach) Rx Instructions: administer between meals insulin aspart U-100 [Novolog FlexPen U-100 Insulin] 100 unit/mL (3 mL) insulin pen See Rx Instructions .ROUTE .COMPLEX Rx Instructions: per sliding scale omeprazole 20 mg capsule,delayed release(DR/EC) 20 mg PO DAILY cetirizine [Zyrtec] 10 mg tablet 10 mg PO DAILY PRN (Reason: Allergy Symptoms) duloxetine [Cymbalta] 30 mg capsule,delayed release(DR/EC) 90 mg PO DAILY hydroxyzine HCl 50 mg tablet 25 mg PO Q8H PRN (Reason: Anxiety) melatonin 5 mg capsule 10 mg PO BEDTIME PRN sucralfate [Carafate] 1 gram tablet 1 g PO TID Tresiba FlexTouch U-100 100 unit/mL (3 mL) insulin pen 95 unit SUBCUT DAILY (DME) ASO brace See Rx Instructions .Route .MEDSUPPLY Qty: 1 0RF Rx Instructions: As directed docusate sodium 100 mg tablet 100 mg PO BID doxepin 50 mg capsule 50 mg PO .at bed gabapentin 400 mg capsule 400 mg PO TID levothyroxine 25 mcg capsule 25 mcg PO DAILY meloxicam 15 mg tablet 15 mg PO DAILY amlodipine [Norvasc] 2.5 mg tablet 2.5 mg PO DAILY oxcarbazepine 300 mg tablet 300 mg PO BID risperidone [Risperdal] 1 mg tablet 1 mg PO BID olanzapine [Zyprexa Zydis] 5 mg tablet,disintegrating 5 mg PO Q6H PRN insulin aspart U-100 100 unit/mL solution 35 unit SUBCUT .BEFORE MEALS Discharge Orders: Discharge ED (Routine); Ordered 11/09/22 Ordered By: Ute Sarkar Referrals: Hector Henry MD [Primary Care Provider] - Activity Restrictions/Additional Instructions: As we discussed we are placing you on antibiotics for coverage of a possible bladder/kidney infection. We discussed speaking to your primary care provider in regards to your elevated liver enzymes and your fatty/cirrhotic liver seen on CT imaging. You may return to the emergency department for worsening flank pain, repetitive episodes of vomiting, inability to hold down your antibiotics, fevers, or any other concerns you may have. Coding Level of Care Code ED Facility Technician for Jocy Alarcon
[2022-11-09 18:41] VITALS: RESP 14
[2022-11-09] MEDS: ondansetron 2 mg/ML SDV 2 mL 4 MG IVP (18:41)
[2022-11-09] MEDS: morphine 4 mg/mL SDV 1 mL IVP (18:41)
[2022-11-09 18:44] LABS: Basophils # 0.1 10^3/uL (0.0-0.1); Basophils % 0.8 %; Eosinophils # 0.3 10^3/uL (0.0-0.8); Eosinophils % 3.8 %; Hematocrit 39.7 % (37.0-47.0); Hemoglobin 12.8 g/dL (11.5-15.3); Lymphocytes # 2.2 10^3/uL (0.8-4.8); Lymphocytes % 29.9 %; Mean Corpuscular HGB Conc 32.2 g/dL (30.0-36.0); Mean Corpuscular Hemoglobin 28.4 pg (28.0-34.0); Mean Corpuscular Volume 88.2 fl (81-99); Mean Platelet Volume 11.2 fL (7.4-10.4); Monocytes # 0.6 10^3/uL (0.2-0.9); Monocytes % 7.6 %; Neutrophils # 4.18 10^3/uL (1.8-7.7); Neutrophils % 57.5 %; Nucleated Red Blood Cells % 0 %; Platelet Count 94 10^3/cmm (130-400); Red Cell Distribution Width 15.2 % (12.1-15.1); White Blood Count 7.3 10^3/uL (4.0-10.0)
[2022-11-09 18:59] LABS: Urine Appearance Cloudy (CLEAR); Urine Color Yellow (Yellow)
[2022-11-09 19:00] LABS: Add Urine Microscopic? YES; Bilirubin Urine Neg (Negative); Blood Urine Trace (Negative); Glucose Urine UA Norm (Normal); Ketones Urine Negative (Negative); Leukocyte Esterase Urine 2+ (Negative); Nitrate Urine Negative (Negative); Protein Urine Neg (Negative); Specific Gravity, Urine 1.005 (1.005-1.030); Urobilinogen Urine Norm (Negative); pH Urine 7 (5-7)
[2022-11-09 19:01] LABS: Bacteria Urine TRACE /hpf; RBC Urine 0-4 /hpf (0-2); Squamous Epithelial Cell Urine 0-4 /hpf (0-5)
[2022-11-09 19:02] LABS: Alanine Aminotransferase 38 U/L (0-33); Albumin Level 4.2 g/dL (3.5-5.2); Alkaline Phosphatase 110 U/L (35-105); Anion Gap 14.4 (5-19); Aspartate Amino Transferase 34 U/L (0-32); Blood Urea Nitrogen 4 mg/dL (6-20); Calcium 8.5 mg/dL (8.5-10.5); Carbon Dioxide 24 mmol/L (22-29); Chloride 94 mmol/L (98-107); Glomerular Filtration Rate 106.3 mL/min (90-130); Glucose 220 mg/dL (65-115); Osmolality Calculated 272 mOsm/kg (285-295); Potassium 3.4 mmol/L (3.5-5.1); Sodium 129 mmol/L (136-145); Total Bilirubin 0.3 mg/dL (0.15-1.2); Total Protein 7.2 g/dL (6.6-8.7)
--- NOTE | 2022-11-09 19:02 | PC.NURSE ---
Report received from Margarita RN. Rounded on pt, pt denies needs at this time.
--- NOTE | 2022-11-09 19:23 | CTR_ITS ---
PROCEDURE INFORMATION: Exam: CT Abdomen And Pelvis Without Contrast Exam date and time: 11/09/2022 7:38 PM Age: 47 years old Clinical indication: Abdominal pain; Flank; Right; Additional info: Flank/back pain, UTI symptoms TECHNIQUE: Imaging protocol: Computed tomography of the abdomen and pelvis without contrast. Radiation optimization: All CT scans at this facility use at least one of these dose optimization techniques: automated exposure control; mA and/or kV adjustment per patient size (includes targeted exams where dose is matched to clinical indication); or iterative reconstruction. REPORTING DATA: Count of CT and Cardiac NM exams in prior 12 months: This patient has received 0 known CTs and 0 known cardiac nuclear medicine studies in the 12 months prior to the current study. COMPARISON: CR XR chest 1V portable [id number] 03/18/2022 1:34 AM RADIATION DOSE METRICS: Total DLP (mGy-cm): 1320.06 FINDINGS: Lungs: Patchy bilateral dependent airspace infiltrates. Coronary arteries: Coronary artery atherosclerotic calcifications. Liver: Hepatic steatosis. Cirrhotic liver. Gallbladder and bile ducts: Cholecystectomy. Pancreas: Normal. No ductal dilation. Spleen: Spleen enlarged to 17 cm. Adrenal glands: Normal. No mass. Kidneys and ureters: Mild perinephric edema bilaterally may reflect renal insufficiency, please correlate for pyelonephritis. Stomach and bowel: Unremarkable. No obstruction. No mucosal thickening. Appendix: No evidence of appendicitis. Intraperitoneal space: Small amount of abdominal ascites. Vasculature: Unremarkable. No abdominal aortic aneurysm. Lymph nodes: Unremarkable. No enlarged lymph nodes. Urinary bladder: Unremarkable as visualized. Reproductive: Unremarkable as visualized. Bones/joints: Bilateral L4 pars interarticularis defects. Soft tissues: Unremarkable. CT/CT kidney stone [id number] IMPRESSION: 1. Mild perinephric edema bilaterally may reflect renal insufficiency, please correlate for pyelonephritis. 2. Patchy bilateral dependent airspace infiltrates. 3. Coronary artery atherosclerotic calcifications. 4. Hepatic steatosis. 5. Cirrhotic liver. 6. Spleen enlarged to 17 cm. 7. Cholecystectomy. 8. Small amount of abdominal ascites. 9. Bilateral L4 pars interarticularis defects, chronic.
[2022-11-09 20:13] VITALS: BP 144/98; PULSE 85; O2SAT 92
[2022-11-09] MEDS: HYDROcodone-acetaminophen 5-325 mg Tablet 1 TAB PO (21:26)
[2022-11-09] MEDS: cefTRIAXone 1,000 MG in water for injection-sterile 2.1 ML 1 MG IM (21:28)
[2022-11-09 23:54] VITALS: BP 135/100; PULSE 78; RESP 18; O2SAT 94
[2022-11-10 00:24] VITALS: BP 151/92; PULSE 81; RESP 18; O2SAT 96
== END 2022-11-10 00:29 | disposition home or self-care (01) ==
PROVIDERS: Emergency Provider Physician Assistant; PCP Family Medicine
DX: N12 Tubulo-interstitial nephritis, not specified as acute or chronic (principal); Z79.82 Long term (current) use of aspirin; Z79.4 Long term (current) use of insulin; E11.9 Type 2 diabetes mellitus without complications
CPT/HCPCS: 74176; 80053; 81001; 85025; 96372; 96374; 96375; 99285; J0696; J2270; J2405

== ENCOUNTER 2023-01-06 18:12 | Inpatient (IN) | payer MEDICAID, SELFPAY ==
[2023-01-06 18:19] VITALS: BP 171/98; PULSE 92; RESP 16; TEMP 36.7; O2SAT 98; BMI 43.8
[2023-01-06 19:01] LABS: Add Urine Microscopic? NO; Charge for UA Resulting for Rev
[2023-01-06 19:04] LABS: Basophils # 0.1 10^3/uL (0.0-0.1); Basophils % 0.7 %; Eosinophils # 0.2 10^3/uL (0.0-0.8); Eosinophils % 2.5 %; Hemoglobin 14.1 g/dL (11.5-15.3); Mean Corpuscular HGB Conc 32.8 g/dL (30.0-36.0); Mean Corpuscular Hemoglobin 28.5 pg (28.0-34.0); Mean Corpuscular Volume 86.9 fl (81-99); Mean Platelet Volume 10.8 fL (7.4-10.4); Monocytes # 0.6 10^3/uL (0.2-0.9); Monocytes % 7.3 %; Neutrophils # 5.46 10^3/uL (1.8-7.7); Neutrophils % 65.1 %; Nucleated Red Blood Cells % 0 %; Platelet Count 90 10^3/cmm (130-400); Red Blood Count 4.95 10^6/uL (4.1-5.3); Red Cell Distribution Width 15.2 % (12.1-15.1); White Blood Count 8.4 10^3/uL (4.0-10.0)
[2023-01-06] MEDS: OLANZapine 10 mg ODT 20 MG PO (19:05)
[2023-01-06 19:08] LABS: Bilirubin Urine Neg (Negative); Blood Urine Neg (Negative); Glucose Urine UA Norm (Normal); Ketones Urine Negative (Negative); Leukocyte Esterase Urine Negative (Negative); Nitrate Urine Negative (Negative); Protein Urine Neg (Negative); Urine Appearance Clear (CLEAR); Urine Color Yellow (Yellow); Urobilinogen Urine Norm (Negative); pH Urine 7 (5-7)
[2023-01-06 19:13] LABS: Amphetamines Screen Urine Negative (Negative); Barbiturates Screen Urine Negative (Negative); Benzodiazepines Screen Urine Negative (Negative); Cocaine Screen Urine Negative (Negative); Opiate Screen Urine Negative (Negative); PCP Screen Urine Negative (Negative); THC Screen Urine Negative (Negative)
[2023-01-06 19:23] LABS: Alanine Aminotransferase 38 U/L (0-33); Alkaline Phosphatase 130 U/L (35-105); Anion Gap 14.2 (5-19); Aspartate Amino Transferase 40 U/L (0-32); Blood Urea Nitrogen 6 mg/dL (6-20); Carbon Dioxide 27 mmol/L (22-29); Chloride 99 mmol/L (98-107); Globulin 2.9 g/dL (1.3-4.6); Glomerular Filtration Rate 131.1 mL/min (90-130); Glucose 188 mg/dL (65-115); Osmolality Calculated 285 mOsm/kg (285-295); Potassium 4.2 mmol/L (3.5-5.1); Sodium 136 mmol/L (136-145); Total Bilirubin 0.4 mg/dL (0.15-1.2); Total Protein 6.9 g/dL (6.6-8.7)
[2023-01-06 19:30] LABS: Acetaminophen < 5.0 ug/mL (10-30); Alcohol Level < 10 mg/dL (0-10); Salicylate < 0.3 mg/dL (3-10)
--- NOTE | 2023-01-06 20:05 | W.ED.PSYCHS ---
HPI - Psych General: Chief Complaint: Psychiatric Symptoms Stated Complaint: si Time Seen by Provider: 01/06/23 18:24 History of Present Illness: 47-year-old female with a history of diabetes and mental illness. She presents with several complaints. She says that she has been more anxious lately. She has been hearing voices. Her voices are telling her she should kill herself. She has been battling a urinary tract infection, that is chronic. She has not had recent fever. She has been getting Invanz via IV infusion in a nursing facility. She has an IV in place for this. MD complaint: suicidal ideation and feels depressed Onset (ago): day(s) History of same: Yes Context: significant life stressor and other Associated psychiatric symptoms: depression and suicidal ideation Treatments prior to arrival: none If self harm: admits thoughts of self harm and has plan Review of Systems Const: Denies: fever(s), chills or body aches Eyes: Denies: change in vision Card: Denies: chest pain or palpitations Resp: Denies: dyspnea, productive cough, non-productive cough or wheezing GI: Denies: abdominal pain, nausea, vomiting, diarrhea or hematochezia : Denies: difficulty voiding Skin/Breast: Denies: rash Neuro: Denies: headache(s), weakness in extremities, dizziness or confusion PFSH ED PFSH: Medical History Bipolar disorder LEOONR (generalized anxiety disorder) Guardianship No pertinent family history Person, living, residential institution Psychiatric care Substance abuse Type 2 diabetes mellitus Physical Exam Const: COMMON NORMALS: no acute distress GENERAL APPEARANCE: cooperative; not ill appearing and not frail appearing HENMT: COMMON NORMALS: normocephalic, atraumatic and Normal external nose present HEAD & SCALP: normocephalic and atraumatic FACE & SINUS: normal facial exam and face symmetric NOSE: Normal external nose present Eye: COMMON NORMALS: Equal, round and reactive pupils present and EOMs intact bilaterally PUPIL: Yes Equal, round and reactive pupils present Neck/C-Spine: GENERAL: Yes trachea midline Chest: CHEST: Yes Symmetrical chest wall rise Resp: COMMON NORMALS: normal respiratory effort, No retractions, No use of accessory muscles and clear to auscultation bilaterally AUSCULTATION: clear to auscultation bilaterally Cardio: COMMON NORMALS: regular rate and regular rhythm RATE: regular rate RHYTHM: regular rhythm GI: COMMON NORMALS: Normal to inspection, nondistended, normoactive bowel sounds present Extremity: COMMON NORMALS: no pedal edema Neuro: BLAINE COMA SCALE: document GCS findings [place] coma scale eye opening: Spontaneous [place] coma scale verbal response: Orientated [place] coma scale motor response: Obey commands [place] coma scale total score: 15 SENSORY EXAM: Yes extremities (intact) Psych: COMMON NORMALS: speech normal SPEECH: Yes normal speech Skin: COMMON NORMALS: no rashes or lesions noted GENERAL SKIN EXAM: no rashes or lesions noted Course Vital Signs: Vital signs: Vital Signs Temperature 98.0 F 01/06/23 18:19 Pulse Rate 92 01/06/23 18:19 Respiratory Rate 16 01/06/23 18:19 Blood Pressure 171/98 01/06/23 18:19 Pulse Oximetry 98 01/06/23 18:19 Oxygen Delivery Me thod Room Air 01/06/23 18:19 MDM - Psych Medical Decision Making Patient requested medication for anxiety, and for chronic pain. She was given both. Laboratory she has a negative urinalysis, with normal laboratory otherwise. We will have culture of urine sent to confirm no urinary tract infection that needs to be treated ongoing. Otherwise, spoke with psychiatry. He the patient wishes to be admitted for evaluation and management given her suicidal ideation. We both believe this is appropriate. She will be admitted. Orders for sliding scale insulin as well as long-acting insulin have been written. Medically, otherwise she is quite stable. As she does not appear to have any urinary tract infection on today's urinalysis, we will not continue IV antibiotics at this point. Urine culture will be pending. Lab Data 01/06/23 18:56 01/06/23 18:56 Laboratory Results WBC 8.4 10^3/uL (4.0-10.0) 01/06/23 18:56 RBC 4.95 10^6/uL (4.1-5.3) 01/06/23 18:56 Hgb 14.1 g/dL (11.5-15.3) 01/06/23 18:56 Hct 43.0 % (37.0-47.0) 01/06/23 18:56 MCV 86.9 fl (81-99) 01/06/23 18:56 MCH 28.5 pg (28.0-34.0) 01/06/23 18:56 MCHC 32.8 g/dL (30.0-36.0) 01/06/23 18:56 RDW 15.2 % (12.1-15.1) H 01/06/23 18:56 Plt Count 90 10^3/cmm (130-400) L 01/06/23 18:56 MPV 10.8 fL (7.4-10.4) H 01/06/23 18:56 Neut % (Auto) 65.1 % 01/06/23 18:56 Lymph % (Auto) 24.0 % 01/06/23 18:56 [place] % (Auto) 7.3 % 01/06/23 18:56 Eos % (Auto) 2.5 % 01/06/23 18:56 Baso % (Auto) 0.7 % 01/06/23 18:56 Neut # (Auto) 5.46 10^3/uL (1.8-7.7) 01/06/23 18:56 Lymph # (Auto) 2.0 10^3/uL (0.8-4.8) 01/06/23 18:56 [place] # (Auto) 0.6 10^3/uL (0.2-0.9) 01/06/23 18:56 Eos # (Auto) 0.2 10^3/uL (0.0-0.8) 01/06/23 18:56 Baso # (Auto) 0.1 10^3/uL (0.0-0.1) 01/06/23 18:56 Nucleated RBC % (auto) 0 % 01/06/23 18:56 Nucleated RBCs # 0.0 /100WBC 01/06/23 18:56 Sodium 136 mmol/L (136-145) 01/06/23 18:56 Potassium 4.2 mmol/L (3.5-5.1) 01/06/23 18:56 Chloride 99 mmol/L (98-107) 01/06/23 18:56 Carbon Dioxide 27 mmol/L (22-29) 01/06/23 18:56 Anion Gap 14.2 (5-19) 01/06/23 18:56 BUN 6 mg/dL (6-20) 01/06/23 18:56 Creatinine 0.5 mg/dL (0.5-0.9) 01/06/23 18:56 GFR Calculation 131.1 mL/min (90-130) H 01/06/23 18:56 Glucose 188 mg/dL (65-115) H 01/06/23 18:56 Calculated Osmolality 285 mOsm/kg (285-295) 01/06/23 18:56 Calcium 9.0 mg/dL (8.5-10.5) 01/06/23 18:56 Total Bilirubin 0.4 mg/dL (0.15-1.2) 01/06/23 18:56 AST 40 U/L (0-32) H 01/06/23 18:56 ALT 38 U/L (0-33) H 01/06/23 18:56 Alkaline Phosphatase 130 U/L (35-105) H 01/06/23 18:56 Total Protein 6.9 g/dL (6.6-8.7) 01/06/23 18:56 Albumin 4.0 g/dL (3.5-5.2) 01/06/23 18:56 Globulin 2.9 g/dL (1.3-4.6) 01/06/23 18:56 Urine Color Yellow (Yellow) 01/06/23 18:56 Urine Appearance Clear (CLEAR) 01/06/23 18:56 Urine pH 7 (5-7) 01/06/23 18:56 Ur Specific [place] 1.000 (1.005-1.030) L 01/06/23 18:56 Urine Protein Neg (Negative) 01/06/23 18:56 Urine Glucose (UA) Norm (Normal) 01/06/23 18:56 Urine Ketones Negative (Negative) 01/06/23 18:56 Urine Blood Neg (Negative) 01/06/23 18:56 Urine Nitrate Negative (Negative) 01/06/23 18:56 Urine Bilirubin Neg (Negative) 01/06/23 18:56 Urine Urobilinogen Norm mg/dL (Negative) 01/06/23 18:56 Ur Leukocyte Esterase Negative (Negative) 01/06/23 18:56 Salicylates < 0.3 mg/dL (3-10) L 01/06/23 18:56 Urine Opiates Screen Negative ng/mL (Negative) 01/06/23 18:56 Acetaminophen < 5.0 ug/mL (10-30) L 01/06/23 18:56 Ur Barbiturates Screen Negative ng/mL (Negative) 01/06/23 18:56 Ur Phencyclidine Scrn Negative ng/mL (Negative) 01/06/23 18:56 Ur Amphetamines Screen Negative ng/mL (Negative) 01/06/23 18:56 U Benzodiazepines Scrn Negative ng/mL (Negative) 01/06/23 18:56 Urine Cocaine Screen Negative ng/mL (Negative) 01/06/23 18:56 U Marijuana (THC) Screen Negative ng/mL (Negative) 01/06/23 18:56 Ethyl Alcohol < 10 mg/dL (0-10) 01/06/23 18:56 Discharge Plan Discharge Patient Disposition: Admitted As Inpatient Clinical Impression: Suicidal ideation Condition: Stable Coding Level of Care Code ED Development Mgr for Jocy Alarcon
[2023-01-06] MEDS: TRAMadol 50 mg Tablet 100 MG PO (20:10)
[2023-01-06 20:35] VITALS: BP 144/88; PULSE 89; RESP 16; O2SAT 91
[2023-01-06 20:49] LABS: Glucose Point of Care 243 mg/dL (70-110)
[2023-01-06] MEDS: trazodone 50 mg Tablet PO (21:00)
[2023-01-06] MEDS: insulin glargine 100 units/1 mL 95 UNIT SUBCUT (21:23)
[2023-01-07 06:12] VITALS: BP 155/101; PULSE 98; RESP 16; O2SAT 93
[2023-01-07 06:15] LABS: Glucose Point of Care 213 mg/dL (70-110)
--- NOTE | 2023-01-07 06:18 | PC.NURSE ---
RN into room. Pt is currently resting in bed after ambulating to restroom. Pt is calm, cooperative.
--- NOTE | 2023-01-07 07:51 | PC.PHAR ---
pt is from [facility]-medications entered are from the pts mar and tar that was sent with the pt
[2023-01-07 07:53] LABS: Glucose Point of Care 214 mg/dL (70-110)
[2023-01-07 09:27] LABS: Glucose Point of Care 211 mg/dL (70-110)
[2023-01-07] MEDS: insulin lispro 100 unit/1 mL SUBCUT ×2 (09:30→12:12)
[2023-01-07] MEDS: LORazepam 2 mg/mL INJ 1 mL IM (10:27)
[2023-01-07] MEDS: acetaminophen 325 mg Tablet 650 MG PO ×2 (10:27→13:32)
[2023-01-07 10:29] LABS: Glucose Point of Care 232 mg/dL (70-110)
[2023-01-07 10:54] VITALS: BP 206/111; PULSE 95; RESP 18; TEMP 36.9; O2SAT 93
[2023-01-07 12:00] LABS: Glucose Point of Care 232 mg/dL (70-110)
[2023-01-07] MEDS: hyDROXYzine 25 mg Capsule 50 MG PO ×2 (13:32→18:53)
[2023-01-07] MEDS: OLANZapine 5 mg ODT PO (13:32)
[2023-01-07 13:56] VITALS: BP 135/85; PULSE 99; RESP 16; TEMP 36.6; O2SAT 95
[2023-01-07 17:34] LABS: Glucose Point of Care 137 mg/dL (70-110)
[2023-01-07] MEDS: docusate sodium 100 mg Capsule 200 MG PO (18:53)
[2023-01-07] MEDS: atorvastatin 40 mg Tablet 20 MG PO (18:53)
[2023-01-07] MEDS: lactulose oral liq 20 gm/30 mL UDC PO (18:53)
[2023-01-07] MEDS: doxepin 25 mg Capsule 75 MG PO ×2 (18:53→20:14)
--- NOTE | 2023-01-07 19:15 | PC.NURSE ---
Pt became upset and threw her water cup down the [place]el[place] when this nurse was trying to administered ordered medications. Pt has been asleep most of the day. Pt started yelling at the nurse and told the nurse to Fuck off !! Pt stated you don't know what I'm going through ! Nurse encouraged pt to remain calm and to please use good manners.
[2023-01-07 19:41] LABS: Bilirubin Urine Neg (Negative); Blood Urine Neg (Negative); Glucose Urine UA Norm (Normal); Ketones Urine Negative (Negative); Leukocyte Esterase Urine Negative (Negative); Nitrate Urine Negative (Negative); Protein Urine Neg (Negative); Sulfosalicylic Acid Urine Negative (Negative); Urine Appearance Clear (CLEAR); Urine Color Yellow (Yellow); Urobilinogen Urine Norm (Negative); pH Urine 8 (5-7)
[2023-01-07 19:42] LABS: Add Urine Culture? No; RBC Urine 0-4 /hpf (0-2); Squamous Epithelial Cell Urine 0-4 /hpf (0-5); WBC Urine 0-4 /hpf (0-5)
[2023-01-07] MEDS: risperiDONE 1 mg Tablet PO (20:13)
[2023-01-07] MEDS: trazodone 50 mg Tablet PO (20:13)
[2023-01-07] MEDS: BuSPIRONE 10 mg Tablet 15 MG PO (20:13)
[2023-01-07] MEDS: TRAMadol 50 mg Tablet PO (20:13)
[2023-01-07] MEDS: gabapentin 300 mg Capsule 600 MG PO (20:14)
[2023-01-07] MEDS: sucralfate 1 gm Tablet PO (20:14)
[2023-01-07] MEDS: OXcarbazepine 300 mg Tablet PO (20:14)
[2023-01-07] MEDS: OLANZapine 5 mg TABLET PO (20:15)
[2023-01-07] MEDS: sennosides-docusate Tablet 2 TAB PO (20:15)
[2023-01-07 20:21] VITALS: BP 172/110; PULSE 98; RESP 20; O2SAT 94
[2023-01-07] MEDS: lactobacillus 1 Tablet 1 TAB PO (20:39)
[2023-01-07] MEDS: meloxicam 7.5 mg tablet 15 MG PO (20:40)
[2023-01-07 21:39] LABS: Glucose Point of Care 172 mg/dL (70-110)
[2023-01-08 06:00] VITALS: RESP 17
--- NOTE | 2023-01-08 06:40 | PC.NURSE ---
pt resting resp 17
--- NOTE | 2023-01-08 07:34 | W.PM.NPUH&PS ---
Providers/Chief Complaint Admitting Physician: Emir Crane MD Primary Care Provider: Hector Henry MD Chief Complaint: si HPI NPU History of Present Illness Cat Cartagena is a 47 year old female who presented to the emergency department with the following report: Chief Complaint: Psychiatric Symptoms Stated Complaint: si Time Seen by Provider: 01/06/23 18:24 History of Present Illness: 47-year-old female with a history of diabetes and mental illness. She presents with several complaints. She says that she has been more anxious lately. She has been hearing voices. Her voices are telling her she should kill herself. She has been battling a urinary tract infection, that is chronic. She has not had recent fever. She has been getting Invanz via IV infusion in a nursing facility. She has an IV in place for this. complaint: suicidal ideation and feels depressed Onset (ago): day(s) History of same: Yes Context: significant life stressor and other Associated psychiatric symptoms: depression and suicidal ideation Treatments prior to arrival: none If self harm: admits thoughts of self harm and has plan. She was admitted to the neuropsychiatric unit for definitive treatment of those issues. She presents today reporting that she lives at [facility]. She is unclear how long she has been there. She reports that she has been hospitalized many times and has been hospitalized here in the past. Notes suggest that she had 1 inpatient admission in 2012. She reports that she has had more recent hospitalizations at [facility]. She was a poor historian with some possible cognitive limitations but did report that she does not smoke cigarettes, drink alcohol or use any other illicit drugs. She reports that she had some conflict with either a roommate or staff which led to her being here. She cannot give any information on her medications that was helpful. We reviewed her medications that she can give no real history on how long she has been on them or any other helpful factors like that. 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 We discussed getting some collateral information from [facility] in identifying if there is any recommendations that they have. We discussed the concept of intermittent explosive disorder against the context of cognitive disability. We discussed that it may be possible to we will need to change any medication but we will need to get additional information from the staff. She was less labile than she was upon admission as this teletypewriter installer observed her interacting with staff shortly after admission yesterday. Meds NPU Home Medications Medication Instructions Recorded Confirmed Last Taken Type aluminum-mag hydroxide-simethicone 10 ml PO Q6H PRN upset stomach 03/15/22 01/07/23 Unknown History 200 mg-200 mg-20 mg/5 mL oral susp (Romina-Lanta) aspirin 81 mg tablet,delayed 81 mg PO DAILY@03/15/22 01/07/23 Unknown History release (Adult Aspirin Regimen) lovastatin 40 mg tablet 40 mg PO BEDTIME@03/15/22 01/07/23 Unknown History metoprolol succinate 50 mg 50 mg PO DAILY@03/15/22 01/07/23 Unknown History tablet,extended release 24 hr omeprazole 20 mg capsule,delayed 20 mg PO DAILY@03/15/22 01/07/23 Unknown History release polyethylene glycol 3350 17 17 g PO DAILY PRN Constipation 03/15/22 01/07/23 Unknown History gram/dose oral powder (Miralax) ASO brace #1 ea 04/08/22 01/07/23 Unknown Rx amlodipine 2.5 mg tablet (Norvasc) 2.5 mg PO DAILY@09/24/22 01/07/23 Unknown History insulin aspart U-100 100 unit/mL 35 unit SUBCUT .BEFORE MEALS 09/24/22 01/07/23 Unknown History subcutaneous solution (Novolog U-100 Insulin aspart) meloxicam 15 mg tablet 15 mg PO BEDTIME@09/24/22 01/07/23 Unknown History oxcarbazepine 300 mg tablet 300 mg PO BID@,09/24/22 01/07/23 Unknown History risperidone 1 mg tablet (Risperdal) 1 mg PO BID@,09/24/22 01/07/23 Unknown History sucralfate 1 gram tablet (Carafate) 1 g PO TID 09/24/22 01/07/23 Unknown History acetaminophen 325 mg tablet 650 mg PO Q6H PRN pain/temp 12/12/22 01/07/23 Unknown History (Tylenol) buspirone 15 mg tablet 15 mg PO TID 30 days #90 tabs 12/12/22 01/07/23 Unknown Rx cetirizine 10 mg tablet (Zyrtec) 10 mg PO DAILY@ Allergy Symptoms 12/12/22 01/07/23 Unknown History docusate sodium 100 mg tablet 200 mg PO BID@,12/12/22 01/07/23 Unknown History losartan 100 mg tablet 100 mg PO DAILY@12/12/22 01/07/23 Unknown History melatonin 5 mg capsule 10 mg PO BEDTIME@12/12/22 01/07/23 Unknown History olanzapine 5 mg tablet (Zyprexa) 5 mg PO BID@,12/12/22 01/07/23 Unknown History tramadol 50 mg tablet 50 mg PO Q6H PRN rebound pain 12/12/22 01/07/23 Unknown History Lactobacillus acidophilus 1 cap PO BEDTIME 01/07/23 01/07/23 Unknown History (Acidophilus capsule) camphor-menthol 0.2 %-3.5 % See Rx Instructions .Route .COMPLEX 01/07/23 01/07/23 Unknown History topical gel dextrose 15 gram/32 mL oral gel See Rx Instructions .Route .COMPLEX 01/07/23 01/07/23 Unknown History packet doxepin 75 mg capsule 75 mg PO BEDTIME@01/07/23 01/07/23 Unknown History duloxetine 30 mg capsule,delayed 30 mg PO DAILY@01/07/23 01/07/23 Unknown History release (Cymbalta) duloxetine 60 mg capsule,delayed 60 mg PO DAILY@01/07/23 01/07/23 Unknown History release (Cymbalta) ertapenem 1 gram solution for 1 g IV .IN THE AFTERNOON 01/07/23 01/07/23 Unknown History injection gabapentin 600 mg tablet 600 mg PO QID 01/07/23 01/07/23 Unknown History insulin aspart U-100 100 unit/mL See Rx Instructions .Route .COMPLEX 01/07/23 01/07/23 Unknown History subcutaneous solution (Novolog U-100 Insulin aspart) insulin degludec 100 unit/mL 95 unit SUBCUT BEDTIME@01/07/23 01/07/23 Unknown History subcutaneous solution (Tresiba U-100 Insulin) lactulose 10 gram/15 mL oral 30 ml PO BID@,01/07/23 01/07/23 Unknown History solution levothyroxine 25 mcg tablet 25 mcg PO DAILY@05 01/07/23 01/07/23 Unknown History naloxone 2 mg/2 mL syringe kit See Rx Instructions .Route .COMPLEX 01/07/23 01/07/23 Unknown History vit no.95-ferrous 1 tab PO DAILY@07 01/07/23 01/07/23 Unknown History fumarate 28 mg-folic acid 800 mcg tablet ( Multivitamins) sennosides 8.6 mg-docusate sodium 2 tab PO BID@,01/07/23 01/07/23 Unknown History 50 mg tablet (Senna-S) Allergies Allergy/AdvReac Type Severity Reaction Status Date / Time hexachlorophene Allergy Mild ADR-Shakine Verified 12/12/22 10:29 [From Septisol] ss povidone-iodine Allergy Mild ADR-Shakine Verified 12/12/22 10:29 [From Septisol] ss divalproex sodium Allergy Unknown Verified 01/07/23 07:18 [From Depakote] haloperidol [From Haldol] Allergy Unknown Verified 01/07/23 07:18 naproxen Allergy Unknown Verified 01/07/23 07:18 Penicillins Allergy Unknown Verified 01/07/23 07:18 halidol Allergy Mild ALGY-Hives Uncoded 09/10/22 07:53 PFSH NPU PFSH: Medical History Bipolar disorder LEONOR (generalized anxiety disorder) Guardianship No pertinent family history Person, living, residential institution Psychiatric care Substance abuse Type 2 diabetes mellitus Mental Status Exam MSE Comments: This is an obese versus morbidly white female in hospital scrubs with limited grooming and eye contact. No abnormal movements except for mild psychomotor retardation which is very different from the significant psychomotor agitation seen yesterday. Mostly cooperative with exam in mild distress. Speech was decreased rate and volume and childlike. Mood described as okay, affect slightly subdued. Thought process linear. Thought content: Patient denied suicidal or homicidal ideation, there were no delusions reported or noted, she denied any auditory or visual hallucinations. Attention and concentration were limited and memory was of limited reliability but none were formally tested. She was alert and oriented times person and place., And impulse control appeared limited versus impaired and intellectual ability appeared limited versus impaired. Vitals/I&O/Wt Last Vital Signs Temp 97.8 F 01/07/23 13:56 Pulse 98 01/07/23 20:21 Resp 20 H 01/07/23 20:21 BP 172/110 01/07/23 20:21 Pulse Ox 94 01/07/23 20:21 O2 Del Method Room Air 01/07/23 20:21 Weight last 48 hrs Weight 127.006 kg Data NPU 01/06/23 18:56 01/06/23 18:56 A&P Assessment and plan (1) Suicidal ideation: (2) LEONOR (generalized anxiety disorder): (3) Person, living, residential institution: (4) Bipolar disorder: (5) Type 2 diabetes mellitus: (6) Edema: (7) Intellectual disability: (8) Borderline intellectual functioning: (9) Intermittent explosive disorder in adult: Plan This is a 47-year-old white female with a long history of mental health and cognitive issues who presents after some conflict at her residential care facility [facility] was likely intellectual disability and intermittent explosive disorder with significant emotional dysregulation on multiple psychiatric medications with limited ability to give a good history. 1. Continue current medication. We will get collateral information from [facility]. 2. Continue every 15 minute checks for safety. 3. Encourage individual group and milieu. 4. We will explore whether this represents some significant change in functioning or baseline poor impulse control. Length of hospitalization will vary significantly based on that fact. Involuntary Hold Information 96 Hour Hold: 96 Hour Involuntary Admission: No Attestations NPU Medical Necessity Statement*: Inpatient hospitalization is medically necessary and the clinically appropriate intervention at this time. We will monitor medications and make changes as indicated. She will be in the hospital for over 2 midnights. Likely length of stay 3 to 5 days. Coding Level of Care Code Acute Code for Chg Fwd Diagnoses Suicidal ideation R45.851 LEONOR (generalized anxiety disorder) F41.1 Person, living, residential institution Z59.3 Bipolar disorder F31.9 Type 2 diabetes mellitus E11.9 Edema R60.9 Intellectual disability F79 Borderline intellectual functioning R41.83 Intermittent explosive disorder in adult F63.81
[2023-01-08] MEDS: docusate sodium 100 mg Capsule 200 MG PO ×2 (07:48→19:40)
[2023-01-08] MEDS: prenatal vitamin Capsule 1 CAP PO (07:48)
[2023-01-08] MEDS: sucralfate 1 gm Tablet PO ×3 (07:49→20:04)
[2023-01-08] MEDS: aspirin 81 mg EC Tablet PO (07:49)
[2023-01-08] MEDS: metoprolol succinate ER (24 HR) 50 mg Tablet PO (07:49)
[2023-01-08] MEDS: BuSPIRONE 10 mg Tablet 15 MG PO ×3 (07:49→19:43)
[2023-01-08] MEDS: gabapentin 300 mg Capsule 600 MG PO ×4 (07:49→19:43)
[2023-01-08] MEDS: sennosides-docusate Tablet 2 TAB PO ×2 (07:49→19:42)
[2023-01-08] MEDS: duloxetine 30 mg Capsule PO (07:49)
[2023-01-08] MEDS: cetirizine 10 mg Tablet PO (07:49)
[2023-01-08] MEDS: amlodipine 5 mg Tablet 2.5 MG PO (07:50)
[2023-01-08] MEDS: duloxetine 60 mg Capsule PO (07:50)
[2023-01-08] MEDS: levothyroxine 25 mcg Tablet PO (07:50)
[2023-01-08] MEDS: pantoprazole DR 40 mg Tablet PO (07:50)
[2023-01-08] MEDS: OXcarbazepine 300 mg Tablet PO ×2 (07:50→19:42)
[2023-01-08] MEDS: OLANZapine 5 mg TABLET PO ×2 (07:50→19:34)
[2023-01-08] MEDS: risperiDONE 1 mg Tablet PO ×2 (07:51→19:43)
[2023-01-08 08:04] LABS: Glucose Point of Care 239 mg/dL (70-110)
[2023-01-08 08:06] VITALS: BP 168/102
[2023-01-08] MEDS: losartan 50 mg Tablet 100 MG PO (08:06)
--- NOTE | 2023-01-08 08:16 | PC.NURSE ---
Patient refused her morning insulin this morning, stating that she might take it later. Patient's BG this AM is 239.
--- NOTE | 2023-01-08 08:24 | PC.NURSE ---
Patient reporting depression. Patient denies anxiety, SI, HI, and AVH. Patient is calm during assessment. Patient refused her morning insulin as well as her lactulose. This nurse encouraged patient to take her insulin; patient said she might take it later
--- NOTE | 2023-01-08 10:47 | PC.NURSE ---
patient requesting Ibuprofen for pain in arm following covid vaccjyotie. Patient has allergy to naproxen. Patient stated that when she has naproxen she gets a little rash . Patient says that she doesn't have reactions when she takes IBU.
[2023-01-08] MEDS: hyDROXYzine 25 mg Capsule 50 MG PO (11:04)
[2023-01-08] MEDS: ibuprofen 600 mg Tablet PO (11:04)
--- NOTE | 2023-01-08 11:05 | PC.NURSE ---
Patient reporting anxiety 01/02. Patient couldn't tell me the cause. Patient given Vistaril 50mg PO
[2023-01-08 12:38] LABS: Glucose Point of Care 263 mg/dL (70-110)
[2023-01-08] MEDS: TRAMadol 50 mg Tablet PO ×2 (13:05→19:34)
[2023-01-08] MEDS: nicotine 21 mg Patch 1 PATCH TRANSDERMA (13:06)
[2023-01-08 14:00] VITALS: BP 147/88; PULSE 102; RESP 18; TEMP 36.9; O2SAT 93
[2023-01-08] MEDS: insulin lispro 100 unit/1 mL SUBCUT (15:46)
[2023-01-08] MEDS: insulin lispro 100 unit/1 mL 35 UNIT SUBCUT (15:47)
--- NOTE | 2023-01-08 17:30 | PC.NURSE ---
1500 Humalog not administered to patient because BG reading is 86.
[2023-01-08 17:32] LABS: Glucose Point of Care 86 mg/dL (70-110)
[2023-01-08 19:34] LABS: Glucose Point of Care 208 mg/dL (70-110)
[2023-01-08] MEDS: lactulose oral liq 20 gm/30 mL UDC PO (19:41)
[2023-01-08] MEDS: meloxicam 7.5 mg tablet 15 MG PO (19:42)
[2023-01-08] MEDS: lactobacillus 1 Tablet 1 TAB PO (19:42)
[2023-01-08] MEDS: doxepin 25 mg Capsule 75 MG PO (19:42)
[2023-01-08] MEDS: atorvastatin 40 mg Tablet 20 MG PO (19:46)
[2023-01-08] MEDS: trazodone 50 mg Tablet PO (20:25)
[2023-01-08 21:02] VITALS: BP 169/101; PULSE 101; RESP 20; TEMP 36.4; O2SAT 93
[2023-01-09] MEDS: TRAMadol 50 mg Tablet PO ×3 (03:16→18:27)
[2023-01-09 06:00] VITALS: BP 122/80; PULSE 96; RESP 20; TEMP 36.8; O2SAT 94
[2023-01-09 06:10] LABS: Glucose Point of Care 341 mg/dL (70-110)
[2023-01-09 06:12] VITALS: BP 122/80
[2023-01-09] MEDS: docusate sodium 100 mg Capsule 200 MG PO ×2 (06:12→18:49)
[2023-01-09] MEDS: risperiDONE 1 mg Tablet PO ×2 (06:12→18:49)
[2023-01-09] MEDS: losartan 50 mg Tablet 100 MG PO (06:12)
[2023-01-09] MEDS: lactulose oral liq 20 gm/30 mL UDC PO ×2 (06:12→18:50)
[2023-01-09] MEDS: aspirin 81 mg EC Tablet PO (06:12)
[2023-01-09] MEDS: metoprolol succinate ER (24 HR) 50 mg Tablet PO (06:12)
[2023-01-09] MEDS: levothyroxine 25 mcg Tablet PO (06:13)
[2023-01-09] MEDS: duloxetine 60 mg Capsule PO (06:14)
[2023-01-09] MEDS: sennosides-docusate Tablet 2 TAB PO ×2 (06:14→18:51)
[2023-01-09] MEDS: amlodipine 5 mg Tablet 2.5 MG PO (06:14)
[2023-01-09] MEDS: OXcarbazepine 300 mg Tablet PO ×2 (06:14→18:49)
[2023-01-09] MEDS: duloxetine 30 mg Capsule PO (06:14)
[2023-01-09] MEDS: cetirizine 10 mg Tablet PO (06:14)
[2023-01-09] MEDS: pantoprazole DR 40 mg Tablet PO (06:14)
[2023-01-09] MEDS: OLANZapine 5 mg TABLET PO ×2 (06:14→18:49)
[2023-01-09] MEDS: prenatal vitamin Capsule 1 CAP PO (06:15)
[2023-01-09] MEDS: insulin lispro 100 unit/1 mL 35 UNIT SUBCUT ×2 (06:19→13:21)
[2023-01-09 07:48] LABS: Glucose Point of Care 332 mg/dL (70-110)
[2023-01-09] MEDS: benztropine 1 mg Tablet PO (09:45)
[2023-01-09] MEDS: BuSPIRONE 10 mg Tablet 15 MG PO ×3 (09:45→20:01)
[2023-01-09] MEDS: gabapentin 300 mg Capsule 600 MG PO ×4 (09:45→20:01)
[2023-01-09] MEDS: sucralfate 1 gm Tablet PO ×3 (09:45→20:01)
[2023-01-09] MEDS: ibuprofen 600 mg Tablet PO ×2 (09:48→23:54)
[2023-01-09] MEDS: insulin lispro 100 unit/1 mL SUBCUT ×2 (09:53→13:23)
[2023-01-09] MEDS: hyDROXYzine 25 mg Capsule 50 MG PO ×2 (11:49→20:55)
[2023-01-09 12:35] LABS: Glucose Point of Care 238 mg/dL (70-110)
[2023-01-09] MEDS: OLANZapine 5 mg ODT PO ×2 (13:33→22:01)
[2023-01-09 13:44] VITALS: BP 119/86; PULSE 90; RESP 17; TEMP 36.8; O2SAT 94
--- NOTE | 2023-01-09 13:45 | W.PM.NPUPNS ---
Subjective NPU Subjective: Patient presented today reporting that she is still really struggling with anxiety. She requested that she get Ativan or some benzodiazepine like Klonopin for her anxiety and we discussed multiple reasons why that is a bad idea long-term. We discussed looking at her medications and likely adjusting the Cymbalta exploring other medications and having concerns about her polypharmacy. We discussed the fact that it would likely be best for other adjustments to be made by her long-term providers. We discussed talking to [facility] and looking at whether discharge would be likely in the next 2 days or Friday. Mental Status Exam MSE Comments: This is an obese versus morbidly white female in hospital scrubs with limited grooming and eye contact. No abnormal movements except for mild psychomotor retardation which is very different from the significant psychomotor agitation seen yesterday. Mostly cooperative with exam in mild distress. Speech was decreased rate and volume and childlike. Mood described as okay, affect slightly subdued. Thought process linear. Thought content: Patient denied suicidal or homicidal ideation, there were no delusions reported or noted, she denied any auditory or visual hallucinations. Attention and concentration were limited and memory was of limited reliability but none were formally tested. She was alert and oriented times person and place., And impulse control appeared limited versus impaired and intellectual ability appeared limited versus impaired. Vitals/I&O/Wt Last Vital Signs Temp 98.3 F 01/09/23 06:00 Pulse 96 01/09/23 06:00 Resp 20 H 01/09/23 06:00 BP 122/80 01/09/23 06:12 Pulse Ox 94 01/09/23 06:00 O2 Del Method Room Air 01/09/23 06:00 Data NPU 01/06/23 18:56 01/06/23 18:56 Micro: Microbiology 01/06/23 18:56 Urine Culture - Preliminary Urine,Clean Catch Strep species, gamma-hemolytic Microbiology 01/06/23 18:56 Urine,Clean Catch Urine Culture - Preliminary Strep species, gamma-hemolytic A&P Assessment and plan (1) Suicidal ideation: (2) LEONOR (generalized anxiety disorder): (3) Person, living, residential institution: (4) Bipolar disorder: (5) Type 2 diabetes mellitus: (6) Edema: (7) Intellectual disability: (8) Borderline intellectual functioning: (9) Intermittent explosive disorder in adult: Plan This is a 47-year-old white female with a long history of mental health and cognitive issues who presents after some conflict at her residential care facility [facility] was likely intellectual disability and intermittent explosive disorder with significant emotional dysregulation on multiple psychiatric medications with limited ability to give a good history. 1. Continue current medication. We will get collateral information from [facility]. Increase Cymbalta to 120 mg every morning. 2. Continue every 15 minute checks for safety. 3. Encourage individual group and milieu. 4. We will explore whether this represents some significant change in functioning or baseline poor impulse control. Length of hospitalization will vary significantly based on that fact. Involuntary Hold Information 96 Hour Hold: 96 Hour Involuntary Admission: No Attestations NPU Medical Necessity Statement*: Inpatient hospitalization is medically necessary and the clinically appropriate intervention at this time. We will monitor medications and make changes as indicated. Likely length of stay 2-4 days. Coding Level of Care Code Acute Code for Chg Fwd Diagnoses Suicidal ideation R45.851 LEONOR (generalized anxiety disorder) F41.1 Person, living, residential institution Z59.3 Bipolar disorder F31.9 Type 2 diabetes mellitus E11.9 Edema R60.9 Intellectual disability F79 Borderline intellectual functioning R41.83 Intermittent explosive disorder in adult F63.81
[2023-01-09 16:38] LABS: Glucose Point of Care 81 mg/dL (70-110)
[2023-01-09] MEDS: meloxicam 7.5 mg tablet 15 MG PO (18:48)
[2023-01-09] MEDS: doxepin 25 mg Capsule 75 MG PO (18:50)
[2023-01-09 19:48] LABS: Glucose Point of Care 309 mg/dL (70-110)
[2023-01-09] MEDS: ciprofloxacin 500 mg Tablet PO (20:01)
[2023-01-09] MEDS: lactobacillus 1 Tablet 1 TAB PO (20:01)
[2023-01-09] MEDS: atorvastatin 40 mg Tablet 20 MG PO (20:01)
[2023-01-09] MEDS: trazodone 50 mg Tablet PO ×2 (20:01→20:55)
[2023-01-09 20:42] VITALS: BP 136/92; PULSE 94; RESP 20; TEMP 36.6; O2SAT 93
[2023-01-10] MEDS: TRAMadol 50 mg Tablet PO ×3 (05:08→19:38)
[2023-01-10 05:51] LABS: Glucose Point of Care 411 mg/dL (70-110)
[2023-01-10 06:00] VITALS: BP 101/64; PULSE 88; RESP 20; TEMP 36.8; O2SAT 93
[2023-01-10] MEDS: aspirin 81 mg EC Tablet PO (06:06)
[2023-01-10] MEDS: lactulose oral liq 20 gm/30 mL UDC PO ×2 (06:06→18:19)
[2023-01-10 06:07] VITALS: BP 101/64
[2023-01-10] MEDS: OXcarbazepine 300 mg Tablet PO ×2 (06:07→18:19)
[2023-01-10] MEDS: pantoprazole DR 40 mg Tablet PO (06:07)
[2023-01-10] MEDS: losartan 50 mg Tablet 100 MG PO (06:07)
[2023-01-10] MEDS: levothyroxine 25 mcg Tablet PO (06:07)
[2023-01-10] MEDS: risperiDONE 1 mg Tablet PO ×2 (06:07→18:18)
[2023-01-10] MEDS: docusate sodium 100 mg Capsule 200 MG PO ×2 (06:07→18:19)
[2023-01-10] MEDS: prenatal vitamin Capsule 1 CAP PO (06:07)
[2023-01-10] MEDS: amlodipine 5 mg Tablet 2.5 MG PO (06:07)
[2023-01-10] MEDS: OLANZapine 5 mg TABLET PO ×2 (06:07→18:19)
[2023-01-10] MEDS: sennosides-docusate Tablet 2 TAB PO ×2 (06:07→18:18)
[2023-01-10] MEDS: cetirizine 10 mg Tablet PO (06:07)
[2023-01-10] MEDS: insulin lispro 100 unit/1 mL 35 UNIT SUBCUT ×3 (06:08→17:26)
[2023-01-10] MEDS: metoprolol succinate ER (24 HR) 50 mg Tablet PO (06:12)
[2023-01-10 07:42] LABS: Glucose Point of Care 394 mg/dL (70-110)
[2023-01-10] MEDS: sucralfate 1 gm Tablet PO ×3 (08:56→19:34)
[2023-01-10] MEDS: BuSPIRONE 10 mg Tablet 15 MG PO ×3 (08:56→19:34)
[2023-01-10] MEDS: ciprofloxacin 500 mg Tablet PO ×2 (08:56→19:34)
[2023-01-10] MEDS: gabapentin 300 mg Capsule 600 MG PO ×4 (08:57→19:32)
[2023-01-10] MEDS: insulin lispro 100 unit/1 mL SUBCUT ×2 (08:57→17:34)
[2023-01-10] MEDS: duloxetine 60 mg Capsule 120 MG PO (08:57)
[2023-01-10] MEDS: acetaminophen 325 mg Tablet 650 MG PO (09:00)
[2023-01-10] MEDS: nicotine 21 mg Patch 1 PATCH TRANSDERMA (09:01)
[2023-01-10] MEDS: hyDROXYzine 25 mg Capsule 50 MG PO ×2 (09:05→17:34)
[2023-01-10 11:43] LABS: Glucose Point of Care 301 mg/dL (70-110)
--- NOTE | 2023-01-10 12:20 | PC.NURSE ---
spoke with [facility] to verify/confirm pt novalog prescription for 35units as well as her sliding scale order.
[2023-01-10 12:24] LABS: Glucose Point of Care 339 mg/dL (70-110)
[2023-01-10 14:00] VITALS: BP 141/86; PULSE 75; RESP 17; TEMP 36.7; O2SAT 97
[2023-01-10] MEDS: OLANZapine 5 mg ODT PO (15:11)
--- NOTE | 2023-01-10 17:16 | W.PM.NPUPNS ---
Subjective NPU Subjective: Patient presented today reporting that she was having some anxiety. She continued to lobby during the day for a benzodiazepine as an intervention and we were clear that that was not the direction we had planned to go. We discussed the increase in the Cymbalta to 120 mg daily from 90 mg. We discussed her polypharmacy and the preference that people to do her be the ones making adjustments to these medications if needed. She reported a desire to go home tomorrow which was a divergence from her previous desire to discharge on Friday or even to stay as long as she could. After we discussed a willingness to allow her to stay till Friday she seemed to be able to get herself to a discharge tomorrow. We discussed calling her facility and making sure that they can support this Friday discharge. Mental Status Exam MSE Comments: This is an obese versus morbidly white female in hospital scrubs with limited grooming and eye contact. No abnormal movements except for mild psychomotor retardation which is very different from the significant psychomotor agitation seen yesterday. Mostly cooperative with exam in mild distress. Speech was slightly decreased rate and volume and childlike. Mood described as feeling a little better, affect slightly subdued. Thought process linear. Thought content: Patient denied suicidal or homicidal ideation, there were no delusions reported or noted, she denied any auditory or visual hallucinations. Attention and concentration were limited and memory was of limited reliability but none were formally tested. She was alert and oriented times person and place. Insight, judgment and impulse control appeared limited versus impaired and intellectual ability appeared limited versus impaired. Vitals/I&O/Wt Last Vital Signs Temp 98.0 F 01/10/23 20:39 Pulse 79 01/10/23 20:39 Resp 18 01/10/23 20:39 BP 131/86 01/10/23 20:39 Pulse Ox 94 01/10/23 20:39 O2 Del Method Room Air 01/10/23 20:39 Data NPU 01/06/23 18:56 01/06/23 18:56 Micro: Microbiology 01/09/23 19:43 Blood Culture - Preliminary Blood NEGATIVE TO DATE 01/09/23 19:43 Blood Culture - Preliminary Blood NEGATIVE TO DATE Microbiology 01/09/23 19:43 Blood Blood Culture - Preliminary NEGATIVE TO DATE 01/09/23 19:43 Blood Blood Culture - Preliminary NEGATIVE TO DATE A&P Assessment and plan (1) Suicidal ideation: (2) LEONOR (generalized anxiety disorder): (3) Person, living, residential institution: (4) Bipolar disorder: (5) Type 2 diabetes mellitus: (6) Edema: (7) Intellectual disability: (8) Borderline intellectual functioning: (9) Intermittent explosive disorder in adult: Plan This is a 47-year-old white female with a long history of mental health and cognitive issues who presents after some conflict at her residential care facility [facility] was likely intellectual disability and intermittent explosive disorder with significant emotional dysregulation on multiple psychiatric medications with limited ability to give a good history. 1. Continue current medication. We will get collateral information from [facility]. Increased Cymbalta to 120 mg every morning. 2. Continue every 15 minute checks for safety. 3. Encourage individual group and milieu. 4. We will explore whether this represents some significant change in functioning or baseline poor impulse control. Length of hospitalization will vary significantly based on that fact. Patient has been quite resistant to discharge and reported wanting to stay through the weekend, however she had a change of heart and said that she like to go home tomorrow. Given a very cluster B styling to her interactions with significant mood dysregulation, a likely intermittent explosive nature to this with her intellectual disability, we will attempt to assess whether her facility is prepared to take her in the morning. Involuntary Hold Information 96 Hour Hold: 96 Hour Involuntary Admission: No Attestations NPU Medical Necessity Statement*: Inpatient hospitalization is medically necessary and the clinically appropriate intervention at this time. We will monitor medications and make changes as indicated. Likely length of stay 1-3 days. Coding Level of Care Code Acute Code for [facility] Fwd Diagnoses Suicidal ideation R45.851 LEONOR (generalized anxiety disorder) F41.1 Person, living, residential institution Z59.3 Bipolar disorder F31.9 Type 2 diabetes mellitus E11.9 Edema R60.9 Intellectual disability F79 Borderline intellectual functioning R41.83 Intermittent explosive disorder in adult F63.81
[2023-01-10] MEDS: ibuprofen 600 mg Tablet PO (17:25)
[2023-01-10 18:05] LABS: Glucose Point of Care 245 mg/dL (70-110)
[2023-01-10] MEDS: meloxicam 7.5 mg tablet 15 MG PO (18:18)
[2023-01-10] MEDS: doxepin 25 mg Capsule 75 MG PO (18:18)
[2023-01-10] MEDS: atorvastatin 40 mg Tablet 20 MG PO (18:19)
[2023-01-10] MEDS: trazodone 50 mg Tablet PO (19:33)
[2023-01-10] MEDS: benztropine 1 mg Tablet PO (19:33)
[2023-01-10] MEDS: lactobacillus 1 Tablet 1 TAB PO (19:33)
[2023-01-10 20:39] VITALS: BP 131/86; PULSE 79; RESP 18; TEMP 36.7; O2SAT 94
[2023-01-10 20:43] LABS: Glucose Point of Care 283 mg/dL (70-110)
[2023-01-11] MEDS: ibuprofen 600 mg Tablet PO (00:39)
[2023-01-11 06:00] VITALS: BP 116/78; PULSE 80; RESP 14; TEMP 36.8; O2SAT 92
[2023-01-11 06:16] LABS: Glucose Point of Care 443 mg/dL (70-110)
[2023-01-11] MEDS: sennosides-docusate Tablet 2 TAB PO (06:20)
[2023-01-11] MEDS: prenatal vitamin Capsule 1 CAP PO (06:22)
[2023-01-11] MEDS: OLANZapine 5 mg TABLET PO (06:22)
[2023-01-11] MEDS: OXcarbazepine 300 mg Tablet PO (06:22)
[2023-01-11] MEDS: docusate sodium 100 mg Capsule 200 MG PO (06:22)
[2023-01-11] MEDS: cetirizine 10 mg Tablet PO (06:22)
[2023-01-11] MEDS: lactulose oral liq 20 gm/30 mL UDC PO (06:22)
[2023-01-11 06:23] VITALS: BP 116/78
[2023-01-11] MEDS: aspirin 81 mg EC Tablet PO (06:23)
[2023-01-11] MEDS: levothyroxine 25 mcg Tablet PO (06:23)
[2023-01-11] MEDS: amlodipine 5 mg Tablet 2.5 MG PO (06:23)
[2023-01-11] MEDS: metoprolol succinate ER (24 HR) 50 mg Tablet PO (06:23)
[2023-01-11] MEDS: risperiDONE 1 mg Tablet PO (06:23)
[2023-01-11] MEDS: pantoprazole DR 40 mg Tablet PO (06:23)
[2023-01-11] MEDS: losartan 50 mg Tablet 100 MG PO (06:23)
[2023-01-11] MEDS: insulin lispro 100 unit/1 mL 35 UNIT SUBCUT ×2 (06:24→12:23)
[2023-01-11 08:01] LABS: Glucose Point of Care 363 mg/dL (70-110)
[2023-01-11] MEDS: ciprofloxacin 500 mg Tablet PO (09:15)
[2023-01-11] MEDS: sucralfate 1 gm Tablet PO ×2 (09:26→15:06)
[2023-01-11] MEDS: BuSPIRONE 10 mg Tablet 15 MG PO ×2 (09:27→15:06)
[2023-01-11] MEDS: duloxetine 60 mg Capsule 120 MG PO (09:27)
[2023-01-11] MEDS: insulin lispro 100 unit/1 mL SUBCUT ×2 (09:28→12:24)
[2023-01-11] MEDS: gabapentin 300 mg Capsule 600 MG PO ×2 (09:29→12:23)
[2023-01-11] MEDS: nicotine 21 mg Patch 1 PATCH TRANSDERMA (09:33)
[2023-01-11] MEDS: TRAMadol 50 mg Tablet PO (09:33)
[2023-01-11] MEDS: benztropine 1 mg Tablet PO (11:11)
--- NOTE | 2023-01-11 11:42 | P.NPUDS_ITS ---
Diagnoses at Discharge Discharge Diagnosis (1) Suicidal ideation: Status: Resolved (2) LEONOR (generalized anxiety disorder): Status: Acute (3) Person, living, residential institution: Status: Acute (4) Bipolar disorder: Status: Acute (5) Type 2 diabetes mellitus: Status: Acute (6) Edema: Status: Acute (7) Intellectual disability: Status: Acute (8) Borderline intellectual functioning: Status: Acute (9) Intermittent explosive disorder in adult: Status: Acute Reason for Visit Reason for Visit: si Brief History: History of Present Illness Cat Cartagena is a 47 year old female who presented to the emergency department with the following report: Chief Complaint: Psychiatric Symptoms Stated Complaint: si Time Seen by Provider: 01/06/23 18:24 History of Present Illness: ? 47-year-old female with a history of diabetes and mental illness.? She presents with several complaints.? She says that she has been more anxious lately.? She has been hearing voices.? Her voices are telling her she should kill herself. She has been battling a urinary tract infection, that is chronic.? She has not had recent fever.? She has been getting Invanz via IV infusion in a nursing facility.? She has an IV in place for this. ? MD complaint: suicidal ideation and feels depressed Onset (ago): day(s) History of same: Yes Context: significant life stressor and other Associated psychiatric symptoms: depression and suicidal ideation Treatments prior to arrival: none If self harm: admits thoughts of self harm and has plan. She was admitted to the neuropsychiatric unit for definitive treatment of those issues.? She presents today reporting that she lives at [facility].? She is unclear how long she has been there.? She reports that she has been hospitalized many times and has been hospitalized here in the past.? Notes suggest that she had 1 inpatient admission in 2013.? She reports that she has had more recent hospitalizations at [facility].? She was a poor historian with some possible cognitive limitations but did report that she does not smoke cigarettes, drink alcohol or use any other illicit drugs.? She reports that she had some conflict with either a roommate or staff which led to her being here.? She cannot give any information on her medications that was helpful.? We reviewed her medications that she can give no real history on how long she has been on them or any other helpful factors like that.? We discussed her likely borderline intellectual functioning versus intellectual disability mild which seems to be a historical situation per her report.? We discussed getting some collateral information from [facility] in identifying if there is any recommendations that they have.? We discussed the concept of intermittent explosive disorder against the context of cognitive disability.? We discussed that it may be possible to we will need to change any medication but we will need to get additional information from the staff.? She was less labile than she was upon admission as this marketing underwriter observed her interacting with staff shortly after admission yesterday. Hospital Course Hospital Course She acclimated to the individual, group and milieu therapies provided.??She presented being fairly dramatic and reporting overwhelming difficulties at her residential care facility. She initially reported there essentially being no way that she would be able to return to this facility. During the hospitalization her Cymbalta was increased to 120 mg p.o. daily. We worked with the outpatient team to identify the fact that she does have intellectual disability and intermittent explosive presentation with significant histrionics. The likelihood being that this kind of behavior would be intermittent during her life and a common presentation. She eventually reported feeling better and being ready to return to her residential care facility. The social work team worked with her to ensure she had appropriate aftercare/follow-up. She had significant improvement and was able to contract for safety outside of the hospital prior to discharge.? During the hospitalization, patient had routine laboratory studies which were within normal limits except for few outliers.? Additionally there was a general medical evaluation which was also within normal limits and revealed no new acute processes. At the time of discharge, she denied psychosis or lethality.? Mood and anxiety were well managed.? Patient endorsed a plan to avoid all drugs of abuse and follow-up with the aftercare recommendations of the treatment team.? Patient was evaluated and deemed to be absent credible lethality, and had achieved the maximum benefit from an inpatient hospitalization, so was discharged.? Involuntary Hold Information 96 Hour Hold: 96 Hour Involuntary Admission: No Mental Status Exam MSE Comments: This is an obese versus morbidly white female in hospital scrubs with limited grooming and eye contact. No abnormal movements except for mild psychomotor retardation. Mostly cooperative with exam in mild distress. Speech was slightly decreased rate and volume and childlike. Mood described as feeling better, affect slightly subdued. Thought process linear. Thought content: Patient denied suicidal or homicidal ideation, there were no delusions reported or noted, she denied any auditory or visual hallucinations. Attention and indio ntration were limited and memory was of limited reliability but none were formally tested. She was alert and oriented times person and place. Insight, judgment and impulse control appeared limited versus impaired and intellectual ability appeared limited versus impaired. Discharge Data Studies Completed and Pending: Pending at discharge Category Date Time Status Blood Culture Sta t Lab 01/09/23 19:43 Results Laboratory Results WBC 8.4 10^3/uL (4.0- 10.0) 01/06/23 18:56 RBC 4.95 10^6/uL (4.1 -5.3) 01/06/23 18:56 Hgb 14.1 g/dL (11.5-1 5.3) 01/06/23 18:56 Hct 43.0 % (37.0-47.0 ) 01/06/23 18:56 MCV 86.9 fl (81-99) 01/06/23 18:56 MCH 28.5 pg (28.0-34. 0) 01/06/23 18:56 MCHC 32.8 g/dL (30.0-3 6.0) 01/06/23 18:56 RDW 15.2 % (12.1-15.1 ) H 01/06/23 18:56 Plt Count 90 10^3/cmm (130- 400) L 01/06/23 18:56 MPV 10.8 fL (7.4-10.4 ) H 01/06/23 18:56 Neut % (Auto) 65.1 % 01/06/23 18:56 Lymph % (Auto) 24.0 % 01/06/23 18:56 [place] % (Auto) 7.3 % 01/06/23 18:56 Eos % (Auto) 2.5 % 01/06/23 18:56 Baso % (Auto) 0.7 % 01/06/23 18:56 Neut # (Auto) 5.46 10^3/uL (1.8 -7.7) 01/06/23 18:56 Lymph # (Auto) 2.0 10^3/uL (0.8- 4.8) 01/06/23 18:56 [place] # (Auto) 0.6 10^3/uL (0.2- 0.9) 01/06/23 18:56 Eos # (Auto) 0.2 10^3/uL (0.0- 0.8) 01/06/23 18:56 Baso # (Auto) 0.1 10^3/uL (0.0- 0.1) 01/06/23 18:56 Nucleated RBC % (a uto) 0 % 01/06/23 18:56 Nucleated RBCs # 0.0 /100WBC 01/06/23 18:56 Sodium 136 mmol/L (136-1 45) 01/06/23 18:56 Potassium 4.2 mmol/L (3.5-5 .1) 01/06/23 18:56 Chloride 99 mmol/L (98-107 ) 01/06/23 18:56 Carbon Dioxide 27 mmol/L (22-29) 01/06/23 18:56 Anion Gap 14.2 (5-19) 01/06/23 18:56 BUN 6 mg/dL (6-20) 01/06/23 18:56 Creatinine 0.5 mg/dL (0.5-0. 9) 01/06/23 18:56 GFR Calculation 131.1 mL/min (90- 130) H 01/06/23 18:56 Glucose 188 mg/dL (65-115 ) H 01/06/23 18:56 POC Glucose 363 mg/dL (70-110 ) H 01/11/23 07:55 Calculated Osmolal ity 285 mOsm/kg (285- 295) 01/06/23 18:56 Calcium 9.0 mg/dL (8.5-10 .5) 01/06/23 18:56 Total Bilirubin 0.4 mg/dL (0.15-1 .2) 01/06/23 18:56 AST 40 U/L (0-32) H 01/06/23 18:56 ALT 38 U/L (0-33) H 01/06/23 18:56 Alkaline Phosphata se 130 U/L (35-105) H 01/06/23 18:56 Total Protein 6.9 g/dL (6.6-8.7 ) 01/06/23 18:56 Albumin 4.0 g/dL (3.5-5.2 ) 01/06/23 18:56 Globulin 2.9 g/dL (1.3-4.6 ) 01/06/23 18:56 Urine Color Yellow (Yellow) 01/07/23 18:30 Urine Appearance Clear (CLEAR) 01/07/23 18:30 Urine pH 8 (5-7) H 01/07/23 18:30 Ur Specific Gravit y 1.010 (1.005-1.0 30) 01/07/23 18:30 Urine Protein Neg (Negative) 01/07/23 18:30 Urine Glucose (UA) Norm (Normal) 01/07/23 18:30 Urine Ketones Negative (Negati ve) 01/07/23 18:30 Urine Blood Neg (Negative) 01/07/23 18:30 Urine Nitrate Negative (Negati ve) 01/07/23 18:30 Urine Bilirubin Neg (Negative) 01/07/23 18:30 Prot Sulfosalicyli c Acd Negative (Negati ve) 01/07/23 18:30 Urine Urobilinogen Norm mg/dL (Negat jared) 01/07/23 18:30 Ur Leukocyte Krupa ase Negative (Negati ve) 01/07/23 18:30 Urine RBC 0-4 /hpf (0-2) H 01/07/23 18:30 Urine WBC 0-4 /hpf (0-5) H 01/07/23 18:30 Ur Squamous Epith Cells 0-4 /hpf (0-5) H 01/07/23 18:30 Amorphous Sediment Not Reportable 01/07/23 18:30 Urine Bacteria None /hpf (NONE) 01/07/23 18:30 Salicylates < 0.3 mg/dL (3-10 ) L 01/06/23 18:56 Urine Opiates Scre en Negative ng/mL (N egative) 01/06/23 18:56 Acetaminophen < 5.0 ug/mL (10-3 0) L 01/06/23 18:56 Ur Barbiturates Sc reen Negative ng/mL (N egative) 01/06/23 18:56 Ur Phencyclidine S crn Negative ng/mL (N egative) 01/06/23 18:56 Ur Amphetamines Sc reen Negative ng/mL (N egative) 01/06/23 18:56 U Benzodiazepines Scrn Negative ng/mL (N egative) 01/06/23 18:56 Urine Cocaine Scre en Negative ng/mL (N egative) 01/06/23 18:56 U Marijuana (THC) Screen Negative ng/mL (N egative) 01/06/23 18:56 Ethyl Alcohol < 10 mg/dL (0-10) 01/06/23 18:56 Vitals: Last Vital Signs Temp 98.2 F 01/11/23 06:00 Pulse 80 01/11/23 06:00 Resp 14 01/11/23 06:00 BP 116/78 01/11/23 06:23 Pulse Ox 92 01/11/23 06:00 O2 Del Method Room Air 01/11/23 06:00 Discharge Plan Discharge Patient Disposition: Xfer SNF Condition: Stable Prescriptions: New duloxetine 60 mg Capsule,Delayed Release(Dr/Ec) 120 mg PO DAILY 30 Days Qty: 60 1RF Continued aspirin [Adult Aspirin Regimen] 81 mg tablet,delayed release (DR/EC) 81 mg PO DAILY@07 lovastatin 40 mg tablet 40 mg PO BEDTIME@19 metoprolol succinate 50 mg tablet extended release 24 hr 50 mg PO DAILY@07 polyethylene glycol 3350 [Miralax] 17 gram/dose powder 17 g PO DAILY PRN (Reason: Constipation) alum-mag hydroxide-simeth [Romina-Lanta] 200-200-20 mg/5 mL suspension 10 ml PO Q6H PRN (Reason: upset stomach) Rx Instructions: administer between meals omeprazole 20 mg capsule,delayed release(DR/EC) 20 mg PO DAILY@07 sucralfate [Carafate] 1 gram tablet 1 g PO TID cetirizine [Zyrtec] 10 mg tablet 10 mg PO DAILY@07 losartan 100 mg tablet 100 mg PO DAILY@07 melatonin 5 mg capsule 10 mg PO BEDTIME@19 meloxicam 15 mg tablet 15 mg PO BEDTIME@19 amlodipine [Norvasc] 2.5 mg tablet 2.5 mg PO DAILY@07 oxcarbazepine 300 mg tablet 300 mg PO BID@, risperidone [Risperdal] 1 mg tablet 1 mg PO BID@07,19 docusate sodium 100 mg tablet 200 mg PO BID@07, acetaminophen [Tylenol] 325 mg tablet 650 mg PO Q6H PRN (Reason: pain/temp) tramadol 50 mg tablet 50 mg PO Q6H PRN (Reason: rebound pain) olanzapine [Zyprexa] 5 mg tablet 5 mg PO BID@, buspirone 15 mg tablet 15 mg PO TID 30 Days Qty: 90 3RF insulin aspart U-100 [Novolog U-100 Insulin aspart] 100 unit/mL solution 35 unit SUBCUT .BEFORE MEALS Acidophilus Capsule 1 cap PO BEDTIME Rx Instructions: for 14 days (end date 01/07/23) camphor-menthol 0.2-3.5 % Gel See Rx Instructions .ROUTE .COMPLEX Rx Instructions: apply to affected area topically every 8 hours as needed for pain doxepin 75 mg capsule 75 mg PO BEDTIME@ gabapentin 600 mg Tablet 600 mg PO QID Senna-S 8.6-50 mg Tablet 2 tab PO BID@, levothyroxine 25 mcg Tablet 25 mcg PO DAILY@ lactulose 10 gram/15 mL Solution 30 ml PO BID@, Multivitamins 28 mg iron- 800 mcg Tablet 1 tab PO DAILY@ dextrose 15 gram/32 mL Gel In Packet See Rx Instructions .ROUTE .COMPLEX Rx Instructions: give one packet by mouth every 15 minutes as needed for low blood sugar-call dr after 2 doses given with no resolve Tresiba U-100 Insulin 100 unit/mL Solution 95 unit SUBCUT BEDTIME@ naloxone 2 mg/2 mL Syringe Kit See Rx Instructions .ROUTE .COMPLEX Rx Instructions: inject 2mg im as needed for opioid overdose Novolog U-100 Insulin aspart 100 unit/mL Solution See Rx Instructions .ROUTE .COMPLEX Rx Instructions: sliding scale before meals 0-100 = 0 units 111-150=4 units 151-200=8 units 201-250=10 units 251-300=12 units 301-350=14 units 351-999=16 units Discontinued ertapenem 1 gram Recon Soln 1 g IV .IN THE AFTERNOON Rx Instructions: start date 01/01/23 end date 01/15/23 duloxetine [Cymbalta] 30 mg Capsule,Delayed Release(Dr/Ec) 30 mg PO DAILY@07 Rx Instructions: take with 60mg cap to =90mg duloxetine [Cymbalta] 60 mg Capsule,Delayed Release(Dr/Ec) 60 mg PO DAILY@07 Rx Instructions: take with 30mg to =90mg Discharge Orders: Discharge Order (Routine); Ordered 01/11/23 Ordered By: Emir Crane Referrals: Amara Ivy MD [[facility]] - 02/13/23 Hector Henry MD [Primary Care Provider] - Discharge Diet: Diabetic Discharge Activity: Resume usual activity Patient Instructions: Depression (DC), Opioid Safety Discharge Attestations NPU Time Spent in Discharge Care*: less than 30 min Specific Discharge Activities: Specific discharge activities: educating patient, discussing with manager case/social workers/dc planners, documenting/other paperwork and evaluating patient/reviewing data Coding Level of Care Code Acute Chg FW DC note Diagnoses Suicidal ideation R45.851 LEONOR (generalized anxiety disorder) F41.1 Person, living, residential institution Z59.3 Bipolar disorder F31.9 Type 2 diabetes mellitus E11.9 Edema R60.9 Intellectual disability F79 Borderline intellectual functioning R41.83 Intermittent explosive disorder in adult F63.81
[2023-01-11 12:09] LABS: Glucose Point of Care 326 mg/dL (70-110)
[2023-01-11 13:57] LABS: SARS Covid-2 Antigen negative (Negative)
[2023-01-11 14:00] VITALS: BP 155/97; PULSE 77; RESP 16; TEMP 36.6; O2SAT 96
[2023-01-11 14:15] VITALS: BP 116/78
[2023-01-11] MEDS: hyDROXYzine 25 mg Capsule 50 MG PO (15:06)
== END 2023-01-11 15:20 | disposition skilled nursing facility (03) | DRG 883 ==
LOC: ER 20:12 → ER IP 22:10 → NP 01-07 10:18
PROVIDERS: Admitting Provider Psychiatry & Neurology Psychiatry; Emergency Provider Emergency Medicine; PCP Family Medicine; Visit Provider Psychiatry & Neurology Psychiatry
DX: F63.81 Intermittent explosive disorder (principal); R45.851 Suicidal ideations; R44.0 Auditory hallucinations; F31.9 Bipolar disorder, unspecified; F79 Unspecified intellectual disabilities; E11.9 Type 2 diabetes mellitus without complications; Z79.4 Long term (current) use of insulin
CPT/HCPCS: 36415; 36416; 80053; 80306; 80307; 81001; 81003; 82962; 85025; 87040; 87077; 87086; 87186; 87426; 96372; 97165; 99238; 99285; J1815; J2060

== ENCOUNTER → 2023-01-17 08:53 | Outpatient (BNVA) | payer MEDICAID, SELFPAY | PROVIDERS: PCP Family Medicine; Visit Provider Physician Assistant | DX: M19.012 Primary osteoarthritis, left shoulder (principal) | CPT/HCPCS: 20610; J3301 ==

== ENCOUNTER 2023-02-26 09:27 | Outpatient (CLI) | payer MEDICAID, SELFPAY ==
--- NOTE | 2023-02-26 10:09 | US_ITS ---
WS: [id number] ULTRASOUND RENAL TECHNIQUE: Ultrasound examination of both kidneys. CLINICAL INFORMATION: PERSONAL HX OF UTI COMPARISON: None. FINDINGS: RIGHT: Right kidney is normal in size and appearance. Echogenicity: Normal. Cortical thickness: 1.3 cm; Normal. Hydronephrosis: None. Perinephric fluid: None. Right kidney measures: 12.8 cm x 5.8 cm x 4.8 cm. LEFT: Left kidney is normal in size and appearance. Echogenicity: Normal. Cortical thickness: 1.5 cm; Normal. Hydronephrosis: None. Perinephric fluid: None. Left kidney measures: 12.4 cm x 4.4 cm x 4.7 cm. Normal visualized aorta. Bladder not visualized likely decompressed. IMPRESSION: 1. Normal renal ultrasound. 2. No hydronephrosis in either kidney. 3. Bladder not visualized likely decompressed.
== END 2023-02-26 09:28 | disposition home or self-care (01) ==
PROVIDERS: PCP Family Medicine; Visit Provider Urology
DX: N39.0 Urinary tract infection, site not specified (principal); Z87.440 Personal history of urinary (tract) infections
CPT/HCPCS: 76770

== ENCOUNTER → 2023-04-15 09:03 | Outpatient (BNVA) | payer MEDICAID, SELFPAY | PROVIDERS: PCP Family Medicine; Visit Provider Nurse Practitioner Women's Health | DX: R30.0 Dysuria (principal); N92.1 Excessive and frequent menstruation with irregular cycle; N94.6 Dysmenorrhea, unspecified; N39.0 Urinary tract infection, site not specified | CPT/HCPCS: 81000; 87086 ==

== ENCOUNTER → 2023-07-01 08:04 | Outpatient (BNVA) | payer MEDICAID, SELFPAY | PROVIDERS: PCP Family Medicine; Visit Provider Obstetrics & Gynecology | DX: R30.0 Dysuria (principal) | CPT/HCPCS: 81000 ==

== ENCOUNTER → 2023-07-11 10:31 | Outpatient (BNVA) | payer MEDICAID, SELFPAY | PROVIDERS: PCP Family Medicine; Visit Provider Physician Assistant | DX: M19.012 Primary osteoarthritis, left shoulder (principal) | CPT/HCPCS: 20610; 99213; J3301 ==

== ENCOUNTER → 2023-07-17 07:47 | Outpatient (BNVA) | payer MEDICAID, SELFPAY | PROVIDERS: PCP Family Medicine; Visit Provider Obstetrics & Gynecology | DX: N39.0 Urinary tract infection, site not specified (principal) | CPT/HCPCS: 76830; 84315 ==

== ENCOUNTER 2023-07-20 18:26 | Emergency (ER) | payer MEDICAID, SELFPAY ==
[2023-07-20 18:28] VITALS: BMI 44.6
[2023-07-20 18:36] VITALS: BP 146/94; PULSE 73; RESP 16; TEMP 36.9; O2SAT 95
[2023-07-20 19:01] LABS: Glucose Point of Care 68 mg/dL (70-110)
[2023-07-20 19:21] LABS: Basophils # 0.1 10^3/uL (0.0-0.1); Basophils % 0.7 %; Eosinophils # 0.4 10^3/uL (0.0-0.8); Hematocrit 45.9 % (36-47); Lymphocytes # 4.3 10^3/uL (0.8-4.8); Lymphocytes % 34.4 %; Mean Corpuscular HGB Conc 33.1 g/dL (30-55); Mean Corpuscular Hemoglobin 28.3 pg (27-33); Mean Corpuscular Volume 85.3 fl (85-98); Mean Platelet Volume 10.6 fL (7.4-10.4); Monocytes # 0.8 10^3/uL (0.2-0.9); Monocytes % 6.7 %; Neutrophils # 6.88 10^3/uL (1.8-7.7); Neutrophils % 54.8 %; Nucleated Red Blood Cells % 0 %; Platelet Count 116 10^3/cmm (157-399); Red Blood Count 5.38 10^6/uL (3.85-5.65); Red Cell Distribution Width 15.7 % (12.1-15.1); White Blood Count 12.56 10^3/uL (3.29-11.43)
--- NOTE | 2023-07-20 19:36 | ED.C_ITS ---
HPI - Psych 2 General: Chief Complaint: Psychiatric Symptoms Stated Complaint: PSYCH EVAL Time Seen by Provider: 07/20/23 18:30 History of Present Illness: Presents to the ER with complaints of hurting herself and hurting others. Patient lives in a lockdown behavioral unit. Patient says there is other residents that are yelling and screaming and that if she has to leave without another day she will will cut herself or be the other persons asked if there was a stop screaming. Patient also says she has UTI and is currently being treated with antibiotics for it. Patient says she is a current patient of Dr. Cook at [facility] [place]. Patient has a guardianship. Patient has a history of substance abuse, bipolar disorder, generalized anxiety, intermittent explosive disorder, Review of Systems 2 General: Reports: 10 or more systems reviewed and unremarkable except in HPI and below PFSH ED 2 PFSH: Medical History LEONOR (generalized anxiety disorder) Guardianship Person, living, residential institution Substance abuse Bipolar disorder Psychiatric care No pertinent family history Type 2 diabetes mellitus Family History Father Diabetes Heart disease Mother Diabetes Heart disease Father Diabetes Sister Diabetes Heart disease Grandmother Diabetes Heart disease Grandfather Diabetes Heart disease Brother Heart disease Denies family history of Colon cancer Ovarian cancer Breast cancer Hypertension Uterine cancer Thyroid disease Stroke Physical Exam 2 Const: COMMON NORMALS: no acute distress, average body habitus, patient oriented x3, no limitations, healthy appearing, alert and well nourished HENMT: COMMON NORMALS: normocephalic, atraumatic, hearing grossly normal bilaterally, external ears normal, Normal external nose present, moist oral mucous membranes and oropharynx normal HEAD & SCALP: normocephalic and atraumatic NOSE: Normal external nose present EXTERNAL EAR: Yes external ears normal Neck/C-Spine: COMMON NORMALS: no JVD Chest: COMMONS NORMALS: normal inspection of the chest and normal palpation of entire chest wall Resp: COMMON NORMALS: normal respiratory effort, No retractions, No use of accessory muscles and clear to auscultation bilaterally AUSCULTATION: clear to auscultation bilaterally Cardio: COMMON NORMALS: no JVD, regular rate, regular rhythm, S1 normal heart sound present, S2 normal heart sound present, No gallops present (Cardio), No clicks present (Cardio), No murmurs present (Cardio) and No rub (Cardio) R ATE: regular rate RHYTHM: regular rhythm HEART SOUNDS: S1 normal heart sound present and S2 normal heart sound present GI: COMMON NORMALS: Normal to inspection, nondistended, normoactive bowel sounds present, Soft to palpation, non-tender, No hepatosplenomegaly present and no masses PALPATION: Yes Soft to palpation and Yes No hepatosplenomegaly present Neuro: COMMON NORMALS: patient oriented x3 SENSORIUM/ORIENTATION: Yes alert Course 2 Vital Signs: Vital signs: Vital Signs Temperature 98.4 F 07/20/23 18:36 Pulse Rate 73 07/20/23 18:36 Respiratory Rate 16 07/20/23 18:36 Blood Pressure 146/94 07/20/23 18:36 Pulse Oximetry 95 07/20/23 18:36 Oxygen Delivery Me thod Room Air 07/20/23 18:36 MDM - Psych Medical Decision Making Patient was worked up in normal psychiatric fashion with lab work. Patient was evaluated. Patient was given 1 mg Ativan to help control her anxiety. Patient was reassessed after get all the information back and patient was calm and logical. Patient says she was upset earlier because one of the other people at her facility was yelling. Patient says she is ready to go back and will not hurt them or herself. I feel patient is calm down and able to go back to her facility. Differential Diagnosis Likely suicidal ideation, bipolar disorder and acute anxiety Medical Records I reviewed the patient's medical records. Lab Data I reviewed the patient's lab results. 07/20/23 19:00 07/20/23 19:00 Laboratory Results WBC 12.56 10^3/uL (3.29-11.43) H 07/20/23 19:00 RBC 5.38 10^6/uL (3.85-5.65) 07/20/23 19:00 Hgb 15.20 g/dL (11.27-16.99) 07/20/23 19:00 Hct 45.9 % (36-47) 07/20/23 19:00 MCV 85.3 fl (85-98) 07/20/23 19:00 MCH 28.3 pg (27-33) 07/20/23 19:00 MCHC 33.1 g/dL (30-55) 07/20/23 19:00 RDW 15.7 % (12.1-15.1) H 07/20/23 19:00 Plt Count 116 10^3/cmm (157-399) L 07/20/23 19:00 MPV 10.6 fL (7.4-10.4) H 07/20/23 19:00 Neut % (Auto) 54.8 % 07/20/23 19:00 Lymph % (Auto) 34.4 % 07/20/23 19:00 [place] % (Auto) 6.7 % 07/20/23 19:00 Eos % (Auto) 3.0 % 07/20/23 19:00 Baso % (Auto) 0.7 % 07/20/23 19:00 Neut # (Auto) 6.88 10^3/uL (1.8-7.7) 07/20/23 19:00 Lymph # (Auto) 4.3 10^3/uL (0.8-4.8) 07/20/23 19:00 [place] # (Auto) 0.8 10^3/uL (0.2-0.9) 07/20/23 19:00 Eos # (Auto) 0.4 10^3/uL (0.0-0.8) 07/20/23 19:00 Baso # (Auto) 0.1 10^3/uL (0.0-0.1) 07/20/23 19:00 Nucleated RBC % (auto) 0 % 07/20/23 19:00 Nucleated RBCs # 0.0 /100WBC 07/20/23 19:00 Sodium 131 mmol/L (136-145) L 07/20/23 19:00 Potassium 3.3 mmol/L (3.5-5.1) L 07/20/23 19:00 Chloride 94 mmol/L (98-107) L 07/20/23 19:00 Carbon Dioxide 28 mmol/L (22-29) 07/20/23 19:00 Anion Gap 12.3 (5-19) 07/20/23 19:00 BUN 7 mg/dL (6-20) 07/20/23 19:00 Creatinine 0.6 mg/dL (0.5-0.9) 07/20/23 19:00 GFR Calculation 105.8 mL/min (90-130) 07/20/23 19:00 Glucose 63 mg/dL (65-115) L 07/20/23 19:00 POC Glucose 68 mg/dL (70-110) L 07/20/23 18:57 Calculated Osmolality 268 mOsm/kg (285-295) L 07/20/23 19:00 Calcium 9.5 mg/dL (8.5-10.5) 07/20/23 19:00 Total Bilirubin 0.6 mg/dL (0.15-1.2) 07/20/23 19:00 AST 22 U/L (0-32) 07/20/23 19:00 ALT 21 U/L (0-33) 07/20/23 19:00 Alkaline Phosphatase 120 U/L (35-105) H 07/20/23 19:00 Total Protein 8.1 g/dL (6.6-8.7) 07/20/23 19:00 Albumin 4.4 g/dL (3.5-5.2) 07/20/23 19:00 Globulin 3.7 g/dL (1.3-4.6) 07/20/23 19:00 TSH 2.51 uIU/mL (0.27-4.20) 07/20/23 19:00 HCG, Qual Negative (Negative) 07/20/23 19:20 Urine Color Light yellow (Yellow) 07/20/23 19:20 Urine Appearance Cloudy (CLEAR) A 07/20/23 19:20 Urine pH 8 (5-7) H 07/20/23 19:20 Ur Specific [place] 1.010 (1.005-1.030) 07/20/23 19:20 Urine Protein Neg (Negative) 07/20/23 19:20 Urine Glucose (UA) Norm (Normal) 07/20/23 19:20 Urine Ketones Negative (Negative) 07/20/23:20 Urine Blood Neg (Negative) 07/20/23 19:20 Urine Nitrate Positive (Negative) H 07/20/23 19:20 Urine Bilirubin Neg (Negative) 07/20/23 19:20 Prot Sulfosalicylic Acd Negative (Negative) 07/20/23 19:20 Urine Urobilinogen Norm mg/dL (Negative) 07/20/23 19:20 Ur Leukocyte Esterase 1+ (Negative) H 07/20/23 19:20 Urine RBC 0-4 /hpf (0-2) H 07/20/23 19:20 Urine WBC 5-10 /hpf (0-5) H 07/20/23 19:20 Ur Squamous Epith Cells 0-4 /hpf (0-5) H 07/20/23 19:20 Amorphous Sediment Not Reportable 07/20/23 19:20 Urine Bacteria 3+ /hpf (NONE) H 07/20/23 19:20 Salicylates < 0.3 mg/dL (3-10) L 07/20/23 19:00 Urine Opiates Screen Negative ng/mL (Negative) 07/20/23 19:20 Acetaminophen < 5.0 ug/mL (10-30) L 07/20/23 19:00 Ur Barbiturates Screen Negative ng/mL (Negative) 07/20/23 19:20 Ur Phencyclidine Scrn Negative ng/mL (Negative) 07/20/23 19:20 Ur Amphetamines Screen Negative ng/mL (Negative) 07/20/23 19:20 U Benzodiazepines Scrn Negative ng/mL (Negative) 07/20/23 19:20 Urine Cocaine Screen Negative ng/mL (Negative) 07/20/23 19:20 U Marijuana (THC) Screen Negative ng/mL (Negative) 07/20/23 19:20 Ethyl Alcohol < 10 mg/dL (0-10) 07/20/23 19:00 All radiology interpretation(s) finalized by discharge Discharge Plan Discharge Patient Disposition: Home Clinical Impression: Acute anxiety, Intermittent explosive disorder in adult Condition: Stable Prescriptions: No Action aspirin [Adult Aspirin Regimen] 81 mg tablet,delayed release (DR/EC) 81 mg PO DAILY@07 lovastatin 40 mg tablet 40 mg PO BEDTIME@19 metoprolol succinate 50 mg tablet extended release 24 hr 50 mg PO DAILY@07 polyethylene glycol 3350 [Miralax] 17 gram/dose powder 17 g PO DAILY PRN (Reason: Constipation) alum-mag hydroxide-simeth [Romina-Lanta] 200-200-20 mg/5 mL suspension 10 ml PO Q6H PRN (Reason: upset stomach) Rx Instructions: administer between meals omeprazole 20 mg capsule,delayed release(DR/EC) 20 mg PO DAILY@07 sucralfate [Carafate] 1 gram tablet 1 g PO TID cetirizine [Zyrtec] 10 mg tablet 10 mg PO DAILY@07 losartan 100 mg tablet 100 mg PO DAILY@07 melatonin 5 mg capsule 10 mg PO BEDTIME@19 ropinirole 0.25 mg tablet 0.25 mg PO DAILY gabapentin 800 mg tablet 800 mg PO TID ketoconazole 2 % cream 1 applic topical DAILY nitrofurantoin macrocrystal 100 mg capsule 100 mg PO BID 5 Days Qty: 10 0RF Rx Instructions: must administer with a meal/food meloxicam 15 mg tablet 15 mg PO BEDTIME@19 docusate sodium 100 mg tablet 200 mg PO BID@07,19 amlodipine [Norvasc] 2.5 mg tablet 5 mg PO DAILY@07 acetaminophen [Tylenol] 325 mg tablet 650 mg PO Q6H PRN (Reason: pain/temp) tramadol 50 mg tablet 50 mg PO Q6H PRN (Reason: rebound pain) duloxetine 60 mg capsule,delayed release(DR/EC) 120 mg PO DAILY 30 Days Qty: 60 2RF buspirone 15 mg tablet 15 mg PO QID Qty: 120 2RF doxepin 75 mg capsule 75 mg PO .HS Qty: 30 2RF risperidone [Risperdal] 1 mg tablet 1 mg PO BID Qty: 60 2RF oxcarbazepine 300 mg tablet 300 mg PO BID Qty: 60 2RF hydroxyzine HCl 50 mg tablet 50 mg PO QID PRN (Reason: anxiety) Qty: 120 0RF insulin aspart U-100 [Novolog U-100 Insulin aspart] 100 unit/mL solution 35 unit SUBCUT .BEFORE MEALS Acidophilus Capsule 1 cap PO BEDTIME Rx Instructions: for 14 days (end date 01/07/23) camphor-menthol 0.2-3.5 % Gel See Rx Instructions .ROUTE .COMPLEX Rx Instructions: apply to affected area topically every 8 hours as needed for pain Senna-S 8.6-50 mg Tablet 2 tab PO BID@, levothyroxine 25 mcg Tablet 25 mcg PO DAILY@05 lactulose 10 gram/15 mL Solution 30 ml PO BID@, dextrose 15 gram/32 mL Gel In Packet See Rx Instructions .ROUTE .COMPLEX Rx Instructions: give one packet by mouth every 15 minutes as needed for low blood sugar-call dr after 2 doses given with no resolve Tresiba U-100 Insulin 100 unit/mL Solution 95 unit SUBCUT BEDTIME@19 naloxone 2 mg/2 mL Syringe Kit See Rx Instructions .ROUTE .COMPLEX Rx Instructions: inject 2mg im as needed for opioid overdose Novolog U-100 Insulin aspart 100 unit/mL Solution See Rx Instructions .ROUTE .COMPLEX Rx Instructions: sliding scale before meals 0-100 = 0 units 111-150=4 units 151-200=8 units 201-250=10 units 251-300=12 units 301-350=14 units 351-999=16 units Discharge Orders: Discharge ED (Routine); Ordered 07/20/23 Ordered By: Alen Nice Referrals: Hector Henry MD [Primary Care Provider] - 1 week Patient Instructions: Anxiety (ED) Activity Restrictions/Additional Instructions: Take all your medicine as directed to help with your anxiety. Please practice stress reduction techniques. Please remove yourself from the situation before things escalate. Please follow-up with your family practice physician within the next 7 days as you may benefit from a medication change. If he cannot do these things and you feel you are going to hurt yourself or help others please return to the ER for further evaluation. Coding Level of Care Code ED Print Shop Assistant for Jocy Alarcon
[2023-07-20] MEDS: LORazepam 1 mg Tablet PO (19:45)
[2023-07-20] MEDS: acetaminophen 500 mg Tablet 1000 MG PO (19:45)
[2023-07-20 19:49] LABS: Acetaminophen < 5.0 ug/mL (10-30); Alanine Aminotransferase 21 U/L (0-33); Albumin Level 4.4 g/dL (3.5-5.2); Alcohol Level < 10 mg/dL (0-10); Alkaline Phosphatase 120 U/L (35-105); Anion Gap 12.3 (5-19); Aspartate Amino Transferase 22 U/L (0-32); Blood Urea Nitrogen 7 mg/dL (6-20); Calcium 9.5 mg/dL (8.5-10.5); Carbon Dioxide 28 mmol/L (22-29); Chloride 94 mmol/L (98-107); Globulin 3.7 g/dL (1.3-4.6); Glomerular Filtration Rate 105.8 mL/min (90-130); Glucose 63 mg/dL (65-115); Osmolality Calculated 268 mOsm/kg (285-295); Potassium 3.3 mmol/L (3.5-5.1); Salicylate < 0.3 mg/dL (3-10); Sodium 131 mmol/L (136-145); Thyroid Stimulating Hormone 2.51 uIU/mL (0.27-4.20); Total Bilirubin 0.6 mg/dL (0.15-1.2); Total Protein 8.1 g/dL (6.6-8.7)
[2023-07-20 20:04] LABS: Amphetamines Screen Urine Negative (Negative); Barbiturates Screen Urine Negative (Negative); Benzodiazepines Screen Urine Negative (Negative); Cocaine Screen Urine Negative (Negative); PCP Screen Urine Negative (Negative); THC Screen Urine Negative (Negative)
[2023-07-20 20:05] LABS: HCG Qualitative Urine. Negative (Negative)
[2023-07-20 20:08] LABS: Add Urine Microscopic? YES; Bilirubin Urine Neg (Negative); Blood Urine Neg (Negative); Glucose Urine UA Norm (Normal); Ketones Urine Negative (Negative); Leukocyte Esterase Urine 1+ (Negative); Nitrate Urine Positive (Negative); Protein Urine Neg (Negative); Sulfosalicylic Acid Urine Negative (Negative); Urine Appearance Cloudy (CLEAR); Urine Color Light yellow (Yellow); Urobilinogen Urine Norm (Negative); pH Urine 8 (5-7)
[2023-07-20 20:13] LABS: Add Urine Culture? Yes; Bacteria Urine 3+ /hpf; RBC Urine 0-4 /hpf (0-2); Squamous Epithelial Cell Urine 0-4 /hpf (0-5)
[2023-07-20 20:23] LABS: Opiate Screen Urine Negative (Negative)
== END 2023-07-20 23:48 | disposition home or self-care (01) ==
PROVIDERS: Emergency Provider Emergency Medicine; PCP Family Medicine
DX: F41.9 Anxiety disorder, unspecified (principal); F63.81 Intermittent explosive disorder; Z79.82 Long term (current) use of aspirin; Z79.4 Long term (current) use of insulin; E11.9 Type 2 diabetes mellitus without complications
CPT/HCPCS: 36415; 36416; 80053; 80306; 80307; 81001; 81025; 82962; 84443; 85025; 87077; 87086; 87186; 99283

== ENCOUNTER 2023-07-28 18:47 | Emergency (ER) | payer MEDICAID, SELFPAY ==
[2023-07-28 18:48] VITALS: BP 148/106; PULSE 74; RESP 18; TEMP 36.7; O2SAT 99
[2023-07-28] MEDS: HYDROcodone-acetaminophen 5-325 mg Tablet 2 TAB PO (19:00)
[2023-07-28] MEDS: LORazepam 1 mg Tablet PO (19:00)
--- NOTE | 2023-07-28 19:00 | ED.C_ITS ---
HPI - Psych General: Chief Complaint: Psychiatric Symptoms Stated Complaint: MHE Time Seen by Provider: 07/28/23 18:50 Source: patient Mode of arrival: ambulatory Limitations: no limitations History of Present Illness: 48-year-old female sent here from [facility] patient has a history of anxiety along with some intellectual disability she had got upset with staff there to became violent she states that she feels much improved she states she feels like she is having anxiety attack she denies any SI or HI. Associated symptoms: Deny depression Review of Systems Const: Denies: fever(s) or chills ENMT: Denies: throat pain or dental pain Card: Denies: chest pain Resp: Denies: dyspnea GI: Denies: abdominal pain, nausea, vomiting or diarrhea Musc: Denies: neck pain or back pain Skin/Breast: Denies: rash Neuro: Denies: headache(s) Psych: Reports: irritability; Denies: depression PFSH ED PFSH: Medical History LEONOR (generalized anxiety disorder) Guardianship Person, living, residential institution Substance abuse Bipolar disorder Psychiatric care No pertinent family history Type 2 diabetes mellitus Family History Father Diabetes Heart disease Mother Diabetes Heart disease Father Diabetes Sister Diabetes Heart disease Grandmother Diabetes Heart disease Grandfather Diabetes Heart disease Brother Heart disease Denies family history of Colon cancer Ovarian cancer Breast cancer Hypertension Uterine cancer Thyroid disease Stroke Female Reproductive History: Date of last menstrual period: 06/09/23 Physical Exam Const: COMMON NORMALS: no acute distress, patient oriented x3 and healthy appearing HENMT: COMMON NORMALS: normocephalic and atraumatic HEAD & SCALP: normocephalic and atraumatic Neck/C-Spine: COMMON NORMALS: full ROM and supple Chest: COMMONS NORMALS: normal inspection of the chest Resp: COMMON NORMALS: normal respiratory effort Cardio: COMMON NORMALS: regular rate, regular rhythm and No murmurs present (Cardio) RATE: regular rate RHYTHM: regular rhythm Extremity: COMMON NORMALS: normal to inspection and full ROM Neuro: COMMON NORMALS: patient oriented x3, moves all extremities and no focal motor deficits Psych: COMMON NORMALS: mental status grossly normal, Normal thought process present and cooperative THOUGHT PROCESS: Normal thought process present Skin: COMMON NORMALS: no rashes or lesions noted and no wounds GENERAL SKIN EXAM: no rashes or lesions noted Course Vital Signs: Vital signs: Vital Signs Temperature 98.1 F 07/28/23 18:48 Pulse Rate 74 07/28/23 18:48 Respiratory Rate 18 07/28/23 18:48 Blood Pressure 148/106 07/28/23 18:48 Pulse Oximetry 99 07/28/23 18:48 Oxygen Delivery Me thod Room Air 07/28/23 18:48 MDM - Psych Medical Decision Making Patient presents with an anger outburst at the correction due to her back pain along with anxiety states she feels improved she is not suicidal she is not homicidal she is not acutely psychotic she stable for discharge back to the correction. Medical Records I reviewed the patient's medical records. No radiology studies performed this visit Discharge Plan Discharge Patient Disposition: Home Clinical Impression: Acute anxiety, Chronic back pain Condition: Stable Prescriptions: No Action aspirin [Adult Aspirin Regimen] 81 mg tablet,delayed release (DR/EC) 81 mg PO DAILY@07 lovastatin 40 mg tablet 40 mg PO BEDTIME@19 metoprolol succinate 50 mg tablet extended release 24 hr 50 mg PO DAILY@07 polyethylene glycol 3350 [Miralax] 17 gram/dose powder 17 g PO DAILY PRN (Reason: Constipation) alum-mag hydroxide-simeth [Romina-Lanta] 200-200-20 mg/5 mL suspension 10 ml PO Q6H PRN (Reason: upset stomach) Rx Instructions: administer between meals omeprazole 20 mg capsule,delayed release(DR/EC) 20 mg PO DAILY@07 sucralfate [Carafate] 1 gram tablet 1 g PO TID cetirizine [Zyrtec] 10 mg tablet 10 mg PO DAILY@07 losartan 100 mg tablet 100 mg PO DAILY@07 melatonin 5 mg capsule 10 mg PO BEDTIME@19 ropinirole 0.25 mg tablet 0.25 mg PO DAILY gabapentin 800 mg tablet 800 mg PO TID ketoconazole 2 % cream 1 applic topical DAILY nitrofurantoin macrocrystal 100 mg capsule 100 mg PO BID 5 Days Qty: 10 0RF Rx Instructions: must administer with a meal/food risperidone 3 mg tablet 3 mg PO BID Qty: 60 2RF hydroxyzine HCl 50 mg tablet 50 mg PO QID PRN (Reason: anxiety) Qty: 120 2RF meloxicam 15 mg tablet 15 mg PO BEDTIME@19 docusate sodium 100 mg tablet 200 mg PO BID@07,19 amlodipine [Norvasc] 2.5 mg tablet 5 mg PO DAILY@07 acetaminophen [Tylenol] 325 mg tablet 650 mg PO Q6H PRN (Reason: pain/temp) tramadol 50 mg tablet 50 mg PO Q6H PRN (Reason: rebound pain) duloxetine 60 mg capsule,delayed release(DR/EC) 120 mg PO DAILY 30 Days Qty: 60 2RF buspirone 15 mg tablet 15 mg PO QID Qty: 120 2RF doxepin 75 mg capsule 75 mg PO .HS Qty: 30 2RF oxcarbazepine 300 mg tablet 300 mg PO BID Qty: 60 2RF insulin aspart U-100 [Novolog U-100 Insulin aspart] 100 unit/mL solution 35 unit SUBCUT .BEFORE MEALS Acidophilus Capsule 1 cap PO BEDTIME Rx Instructions: for 14 days (end date 01/07/23) camphor-menthol 0.2-3.5 % Gel See Rx Instructions .ROUTE .COMPLEX Rx Instructions: apply to affected area topically every 8 hours as needed for pain Senna-S 8.6-50 mg Tablet 2 tab PO BID@07,19 levothyroxine 25 mcg Tablet 25 mcg PO DAILY@05 lactulose 10 gram/15 mL Solution 30 ml PO BID@07,19 dextrose 15 gram/32 mL Gel In Packet See Rx Instructions .ROUTE .COMPLEX Rx Instructions: give one packet by mouth every 15 minutes as needed for low blood sugar-call dr after 2 doses given with no resolve Tresiba U-100 Insulin 100 unit/mL Solution 95 unit SUBCUT BEDTIME@19 naloxone 2 mg/2 mL Syringe Kit See Rx Instructions .ROUTE .COMPLEX Rx Instructions: inject 2mg im as needed for opioid overdose Novolog U-100 Insulin aspart 100 unit/mL Solution See Rx Instructions .ROUTE .COMPLEX Rx Instructions: sliding scale before meals 0-100 = 0 units 111-150=4 units 151-200=8 units 201-250=10 units 251-300=12 units 301-350=14 units 351-999=16 units Discharge Orders: Discharge ED (Routine); Ordered 07/28/23 Ordered By: Lauro Lopez Referrals: Hector Henry MD [Primary Care Provider] - 1-3 days Discharge Diet: Advance as tolerated Discharge Activity: Resume usual activity Patient Instructions: Chronic Back Pain (DC) Coding Level of Care Code ED Service Center Representative for Jocy Alarcon
--- NOTE | 2023-07-28 19:44 | PC.NURSE ---
[facility] called to come pick pt up upon d/c
--- NOTE | 2023-07-28 20:23 | PC.NURSE ---
attempt #2 to call [facility] to check on transport status nurse unavailable
[2023-07-28 20:43] VITALS: PULSE 78; RESP 16; O2SAT 96
== END 2023-07-28 21:15 | disposition home or self-care (01) ==
PROVIDERS: Emergency Provider Emergency Medicine; PCP Family Medicine
DX: F41.9 Anxiety disorder, unspecified (principal); G89.29 Other chronic pain; M54.9 Dorsalgia, unspecified; Z79.82 Long term (current) use of aspirin; Z79.4 Long term (current) use of insulin; E11.9 Type 2 diabetes mellitus without complications
CPT/HCPCS: 99283

== ENCOUNTER 2023-07-31 05:39 | Day surgery (SDC) | payer MEDICAID, SELFPAY ==
[2023-07-31] VITALS (10 sets, daily range): BP systolic 111–147; BP diastolic 75–94; PULSE 62–72; RESP 11–21; TEMP 36.1–36.3; O2SAT 93–99; BMI 45.4
--- NOTE | 2023-07-31 01:28 | W.PM.OPSFHP ---
Same Day Surgery H&P Indication for Procedure/HPI DATE OF PROCEDURE: July 31, 2023 CHIEF COMPLAINT/INDICATIONFOR SURGICAL PROCEDURE: abnormal uterine bleeding PREOP DIAGNOSIS: abnormal uterine bleeding PLANNED PROCEDURE: Operation Date: 07/31/23 07:00 Proposed Procedures p Hysterosocpy, endometrial sampling 08617,19131,N92.1,N94.6(Not Applicable) - Memo Montejo MD s possible endometrial polypectomy(Not Applicable) - Memo Montejo MD s Placement of Intrauterine Device(Not Applicable) - Memo Montejo MD 48 y.o. h/o BTL h/o endometrial ablation 2002 has continued to bleed with heavy periods, with large clots now scheduled for hysteroscopy, endometrial sampling, possible endometrial polypectomy; mirena intrauterine device placement Medications/Allergies* Home Medications Medication Instructions Recorded Confirmed Type aluminum-mag hydroxide-simethicone 10 ml PO Q6H PRN upset stomach 03/15/22 07/30/23 History 200 mg-200 mg-20 mg/5 mL oral susp (Romina-Lanta) aspirin 81 mg tablet,delayed 81 mg PO DAILY@03/15/22 07/30/23 History release (Adult Aspirin Regimen) lovastatin 40 mg tablet 40 mg PO BEDTIME@03/15/22 07/30/23 History metoprolol succinate 50 mg 50 mg PO DAILY@03/15/22 07/30/23 History tablet,extended release 24 hr omeprazole 20 mg capsule,delayed 20 mg PO DAILY@03/15/22 07/30/23 History release polyethylene glycol 3350 17 17 g PO DAILY PRN Constipation 03/15/22 07/30/23 History gram/dose oral powder (Miralax) insulin aspart U-100 100 unit/mL 35 unit SUBCUT .BEFORE MEALS 09/24/22 07/30/23 History subcutaneous solution (Novolog U-100 Insulin aspart) meloxicam 15 mg tablet 15 mg PO BEDTIME@09/24/22 07/30/23 History sucralfate 1 gram tablet (Carafate) 1 g PO TID 09/24/22 07/30/23 History acetaminophen 325 mg tablet 650 mg PO Q6H PRN pain/temp 12/12/22 07/30/23 History (Tylenol) cetirizine 10 mg tablet (Zyrtec) 10 mg PO DAILY@07 Allergy Symptoms 12/12/22 07/30/23 History docusate sodium 100 mg tablet 200 mg PO BID@07,12/12/22 07/30/23 History losartan 100 mg tablet 100 mg PO DAILY@07 12/12/22 07/30/23 History melatonin 5 mg capsule 10 mg PO BEDTIME@12/12/22 07/30/23 History tramadol 50 mg tablet 50 mg PO Q6H PRN rebound pain 12/12/22 07/30/23 History Lactobacillus acidophilus 1 cap PO BEDTIME 01/07/23 07/30/23 History (Acidophilus capsule) camphor-menthol 0.2 %-3.5 % See Rx Instructions .Route .COMPLEX 01/07/23 07/30/23 History topical gel dextrose 15 gram/32 mL oral gel See Rx Instructions .Route .COMPLEX 01/07/23 07/30/23 History packet insulin aspart U-100 100 unit/mL See Rx Instructions .Route .COMPLEX 01/07/23 07/30/23 History subcutaneous solution (Novolog U-100 Insulin aspart) insulin degludec 100 unit/mL 95 unit SUBCUT BEDTIME@01/07/23 07/30/23 History subcutaneous solution (Tresiba U-100 Insulin) lactulose 10 gram/15 mL oral 30 ml PO BID@,01/07/23 07/30/23 History solution levothyroxine 25 mcg tablet 25 mcg PO DAILY@01/07/23 07/30/23 History naloxone 2 mg/2 mL syringe kit See Rx Instructions .Route .COMPLEX 01/07/23 07/30/23 History sennosides 8.6 mg-docusate sodium 2 tab PO BID@,01/07/23 07/30/23 History 50 mg tablet (Senna-S) ropinirole 0.25 mg tablet 0.25 mg PO DAILY 02/13/23 07/30/23 History amlodipine 2.5 mg tablet (Norvasc) 5 mg PO DAILY@07 07/11/23 07/30/23 History gabapentin 800 mg tablet 800 mg PO TID 07/11/23 07/30/23 History ketoconazole 2 % topical cream 1 applic topical DAILY 07/11/23 07/30/23 History Allergies/Adverse Reactions Allergy/AdvReac Type Severity Reaction Status Date / Time hexachlorophene Allergy Mild ADR-Shakine Verified 07/23/23 10:29 [From Septisol] ss povidone-iodine Allergy Mild ADR-Shakine Verified 07/23/23 10:29 [From Septisol] ss divalproex sodium Allergy Unknown Verified 07/23/23 10:29 [From Depakote] haloperidol [From Haldol] Allergy Unknown Verified 07/23/23 10:29 naproxen Allergy Unknown Verified 07/23/23 10:29 Penicillins Allergy Unknown Verified 07/23/23 10:29 halidol Allergy Mild ALGY-Hives Uncoded 07/23/23 10:29 Pertinent History/Comorbid Conditions* Medical History (Updated 07/28/23 @ 19:34 by Lauro Lopez MD) LEONOR (generalized anxiety disorder) Guardianship Person, living, residential institution Substance abuse Bipolar disorder Psychiatric care No pertinent family history Type 2 diabetes mellitus Family History (Updated 04/15/23 @ 08:13 by Noemi Bazzi CMA) Diabetes Father Mother Father Sister Grandmother Grandfather Heart disease Father Mother Sister Grandmother Grandfather Brother Denies family history of Colon cancer Ovarian cancer Breast cancer Hypertension Uterine cancer Thyroid disease Stroke Pertinent Exam Findings alert, oriented x 3, clear to auscultation bilaterally and regular rate & rhythm Recommendations Surgery/Procedure today Coding Level of Care Code Acute Code for Chg Fwd Time Spent (min) 15
[2023-07-31 06:24] LABS: OR HCG Qualitative Urine Negative (Negative)
[2023-07-31] MEDS: sodium chloride 0.9% 1,000 ML 30 ML IV (06:33)
--- NOTE | 2023-07-31 06:36 | ANES.PREANE2 ---
Pre-Anesthetic Assessment Height/Weight: Height 1.7 m Preop Diagnosis: abnormal uterine bleeding Operation Date: 07/31/23 07:00 Proposed Procedures p Hysterosocpy, endometrial sampling 62118,92102,N92.1,N94.6(Not Applicable) - Memo Montejo MD s possible endometrial polypectomy(Not Applicable) - Memo Montejo MD s Placement of Intrauterine Device(Not Applicable) - Memo Montejo MD Social No alcohol and No tobacco Exam alert, oriented x 3, clear to auscultation bilaterally and regular rate & rhythm Airway Submandibular: within normal limits Cervical ROM: within normal limits Mallampati: Class I Neuropsych Deficit Anesthetic Plan ASA status: 3 Anesthesia: General Medications/Allergies Home Medications Medication Instructions Recorded Confirmed Last Taken Type aluminum-mag hydroxide-simethicone 10 ml PO Q6H PRN upset stomach 03/15/22 07/31/23 Unknown History 200 mg-200 mg-20 mg/5 mL oral susp (Romina-Lanta) aspirin 81 mg tablet,delayed 81 mg PO DAILY@03/15/22 07/31/23 Unknown History release (Adult Aspirin Regimen) lovastatin 40 mg tablet 40 mg PO BEDTIME@03/15/22 07/31/23 Unknown History metoprolol succinate 50 mg 50 mg PO DAILY@03/15/22 07/31/23 Unknown History tablet,extended release 24 hr omeprazole 20 mg capsule,delayed 20 mg PO DAILY@03/15/22 07/31/23 Unknown History release polyethylene glycol 3350 17 17 g PO DAILY PRN Constipation 03/15/22 07/31/23 Unknown History gram/dose oral powder (Miralax) insulin aspart U-100 100 unit/mL 35 unit SUBCUT .BEFORE MEALS 09/24/22 07/31/23 Unknown History subcutaneous solution (Novolog U-100 Insulin aspart) meloxicam 15 mg tablet 15 mg PO BEDTIME@09/24/22 07/31/23 Unknown History sucralfate 1 gram tablet (Carafate) 1 g PO TID 09/24/22 07/31/23 Unknown History acetaminophen 325 mg tablet 650 mg PO Q6H PRN pain/temp 12/12/22 07/31/23 Unknown History (Tylenol) cetirizine 10 mg tablet (Zyrtec) 10 mg PO DAILY@07 Allergy Symptoms 12/12/22 07/31/23 Unknown History docusate sodium 100 mg tablet 200 mg PO BID@,12/12/22 07/31/23 Unknown History losartan 100 mg tablet 100 mg PO DAILY@12/12/22 07/31/23 Unknown History melatonin 5 mg capsule 10 mg PO BEDTIME@12/12/22 07/31/23 Unknown History tramadol 50 mg tablet 50 mg PO Q6H PRN rebound pain 12/12/22 07/31/23 Unknown History Lactobacillus acidophilus 1 cap PO BEDTIME 01/07/23 07/31/23 Unknown History (Acidophilus capsule) camphor-menthol 0.2 %-3.5 % See Rx Instructions .Route .COMPLEX 01/07/23 07/31/23 Unknown History topical gel dextrose 15 gram/32 mL oral gel See Rx Instructions .Route .COMPLEX 01/07/23 07/31/23 Unknown History packet insulin aspart U-100 100 unit/mL See Rx Instructions .Route .COMPLEX 01/07/23 07/31/23 Unknown History subcutaneous solution (Novolog U-100 Insulin aspart) insulin degludec 100 unit/mL 95 unit SUBCUT BEDTIME@01/07/23 07/31/23 Unknown History subcutaneous solution (Tresiba U-100 Insulin) lactulose 10 gram/15 mL oral 30 ml PO BID@,01/07/23 07/31/23 Unknown History solution levothyroxine 25 mcg tablet 25 mcg PO DAILY@01/07/23 07/31/23 Unknown History naloxone 2 mg/2 mL syringe kit See Rx Instructions .Route .COMPLEX 01/07/23 07/31/23 Unknown History sennosides 8.6 mg-docusate sodium 2 tab PO BID@,01/07/23 07/31/23 Unknown History 50 mg tablet (Senna-S) ropinirole 0.25 mg tablet 0.25 mg PO DAILY 02/13/23 07/31/23 Unknown History nitrofurantoin macrocrystal 100 mg 100 mg PO BID 5 days #10 caps 04/15/23 07/31/23 Unknown Rx capsule buspirone 15 mg tablet 15 mg PO QID #120 tabs 07/01/23 07/31/23 Unknown Rx doxepin 75 mg capsule 75 mg PO .HS #30 caps 07/01/23 07/31/23 Unknown Rx duloxetine 60 mg capsule,delayed 120 mg (2 x 60 mg) PO DAILY 30 07/01/23 07/31/23 Unknown Rx release days #60 caps oxcarbazepine 300 mg tablet 300 mg PO BID #60 tabs 07/01/23 07/31/23 Unknown Rx amlodipine 2.5 mg tablet (Norvasc) 5 mg PO DAILY@07 07/11/23 07/31/23 Unknown History gabapentin 800 mg tablet 800 mg PO TID 07/11/23 07/31/23 Unknown History ketoconazole 2 % topical cream 1 applic topical DAILY 07/11/23 07/31/23 Unknown History hydroxyzine HCl 50 mg tablet 50 mg PO QID PRN anxiety #120 tabs 07/23/23 07/31/23 Unknown Rx risperidone 3 mg tablet 3 mg PO BID #60 tabs 07/23/23 07/31/23 Unknown Rx Allergies Allergy/AdvReac Type Severity Reaction Status Date / Time hexachlorophene Allergy Mild ADR-Shakine Verified 07/31/23 06:18 [From Septisol] ss povidone-iodine Allergy Mild ADR-Shakine Verified 07/31/23 06:18 [From Septisol] ss divalproex sodium Allergy Unknown Verified 07/31/23 06:18 [From Depakote] haloperidol [From Haldol] Allergy Unknown Verified 07/31/23 06:18 naproxen Allergy Unknown Verified 07/31/23 06:18 Penicillins Allergy Unknown Verified 07/31/23 06:18 Current Medications Generic Name Dose Route Start Last Admin Trade Name Freq PRN Reason Stop Dose Admin Sodium Chloride 1,000 mls @ 30 mls/hr 07/31/23 06:00 07/31/23 06:33 Sodium Chloride 0.9% IV 08/01/23 05:59 30 mls/hr .Q24H ALYSSIA Administration PFSH Anesthesia Medical History LEONOR (generalized anxiety disorder) Guardianship Person, living, residential institution Substance abuse Bipolar disorder Psychiatric care No pertinent family history Type 2 diabetes mellitus Family History Father Diabetes Heart disease Mother Diabetes Heart disease Father Diabetes Sister Diabetes Heart disease Grandmother Diabetes Heart disease Grandfather Diabetes Heart disease Brother Heart disease Denies family history of Colon cancer Ovarian cancer Breast cancer Hypertension Uterine cancer Thyroid disease Stroke Data Anesthesia Cardiac Studies: No Data to Display
[2023-07-31 06:47] LABS: Glucose Point of Care 156 mg/dL (70-110)
--- NOTE | 2023-07-31 07:39 | SUR.OPER ---
parish [facility]man. exp 06/24/25 lot# [id number]
--- NOTE | 2023-07-31 07:44 | W.PM.OPSUD ---
Surgery/Procedure H&P Update DATE OF PROCEDURE: July 31, 2023 DATE H&P PERFORMED: 07/01/23 H&P UPDATE INFORMATION: I have reviewed H&P completed within last 30 days, I have examined patient prior to procedure and No changes to prior documentation PREOP DIAGNOSIS: abnormal uterine bleeding PLANNED PROCEDURE: Operation Date: 07/31/23 07:00 Proposed Procedures p Hysterosocpy, endometrial sampling 72851,64456,N92.1,N94.6(Not Applicable) - Memo Montejo MD s possible endometrial polypectomy(Not Applicable) - Memo Montejo MD s Placement of Intrauterine Device(Not Applicable) - Memo Montejo MD
[2023-07-31] MEDS: acetaminophen 1,000 MG/100 ML PIGGYBACK 400 MG IV (08:38)
--- NOTE | 2023-07-31 09:10 | PM.OP ---
Operative Report Date of procedure: July 31, 2023 Pre-op diagnosis: abnormal uterine bleeding Post-op diagnosis: same Post-op findings: normal endometrial cavity + several small polyps + small amount of fluffy endometrial tissue Procedure done: hysteroscopy Endometrial sampling with Myosure Curettage of uterus Placement of mirena intrauterine device Implants: mirena intrauterine device Specimens removed/disposition: endometrial tissue Surgeon: Memo Montejo MD Anesthesia: MAC Estimated blood loss (mL): 0 Complications: none Condition: stable Disposition: PACU Brief History: 48 y.o. with chronic menorrhagia Procedure: Informed consent was signed. Patient was taken to the operating room. Anesthesia was induced. Patient was placed in dorsolithotomy position, prepped and draped for hysteroscopy. A bivalve speculum was placed in the vagina. The anterior lip of the cervix was grasped with a sharp-toothed tenaculum. The uterus was sounded to 9 cm. The cervix was serially dilated with Hegar dilators. . A hysteroscope was placed into the endometrial cavity. The endometrial cavity was seen to have several small polyps. There was moderate amount of fluffy appearing endometrial tissue. The Myosure device was used to remove the polyps and excess endometrial tissue. The hysteroscope was then removed. Endometrial curettage was done with a sharp curette. Endometrial tissue was sent to pathology. The hysteroscope was re-introduced and the endometrial cavity was seen to be intact. The hysteroscope was removed. The mirena IUD was then prepared, placed into the endometrial cavity and deployed. A 3-4 cm string was left at the cervical os. The sharp-toothed tenaculum was removed. There was no bleeding from the endometrial cavity or cervix. The patient was then placed supine and awakened and taken to the PACU. Postop condition: stable EBL: 5 cc Sponge and instruments counts were normal x 2 Complications: none
--- NOTE | 2023-07-31 20:22 | ANE.PACU2 ---
Inpatient post-anesthesia follow up: Airway intact: Yes Vital signs: Temperature 97 F Pulse Rate 64 Respiratory Rate 18 Blood Pressure 111/75 Pulse Oximetry 97 Oxygen Delivery Me thod Room Air Oxygen Flow Rate 10 Fraction of Inspir ed Oxygen Hydration adequate: Yes Nausea and vomiting: No Pain level: 2 Mental status: Baseline
== END 2023-07-31 08:58 | disposition home or self-care (01) ==
PROVIDERS: Student in an Organized Health Care Education/Training Program; PCP Family Medicine; Visit Provider Obstetrics & Gynecology
PROC: 0UJD8ZZ Inspection of Uterus and Cervix, Via Natural or Artificial Opening Endoscopic (ICD-10-PCS; CPT 58555; principal; 2023-07-31 07:00)
PROC: (CPT 58300; 2023-07-31 07:00)
PROC: (CPT 58300; 2023-07-31 07:00)
DX: N93.9 Abnormal uterine and vaginal bleeding, unspecified (principal); Z79.82 Long term (current) use of aspirin; E11.9 Type 2 diabetes mellitus without complications; Z79.4 Long term (current) use of insulin; F41.1 Generalized anxiety disorder
CPT/HCPCS: 58300; 58558; 36416; 81025; 82962; 84703; 88305; J0131; J1100; J2250; J2405; J2704; J3010; J7030

== ENCOUNTER → 2023-08-12 10:37 | Outpatient (BNVA) | payer MEDICAID, SELFPAY | PROVIDERS: PCP Family Medicine; Visit Provider Physician Assistant | DX: S93.401A Sprain of unspecified ligament of right ankle, initial encounter; S99.911A Unspecified injury of right ankle, initial encounter; W19.XXXA Unspecified fall, initial encounter | CPT/HCPCS: 73630; 99213 ==

== ENCOUNTER → 2023-09-30 14:00 | Outpatient (BNVA) | payer MEDICAID, SELFPAY | PROVIDERS: PCP Family Medicine; Visit Provider Nurse Practitioner Family | DX: Z01.89 Encounter for other specified special examinations (principal) | CPT/HCPCS: 17110; 87070; 99204 ==

== ENCOUNTER 2024-01-08 08:48 | Outpatient (CLI) | payer MEDICAID, SELFPAY | END 2024-01-08 08:49 | disposition home or self-care (01) | LOC: RAD 08:49 | PROVIDERS: PCP Family Medicine; Visit Provider Nurse Practitioner Women's Health | DX: M19.171 Post-traumatic osteoarthritis, right ankle and foot (principal); E11.9 Type 2 diabetes mellitus without complications; Z79.4 Long term (current) use of insulin; Z79.84 Long term (current) use of oral hypoglycemic drugs | CPT/HCPCS: 73610; 77062; 99213; G0279 ==

== ENCOUNTER → 2024-06-18 09:30 | Outpatient (BNVA) | payer MEDICAID, SELFPAY | PROVIDERS: PCP Family Medicine; Visit Provider Physician Assistant | DX: M25.512 Pain in left shoulder; M19.012 Primary osteoarthritis, left shoulder | CPT/HCPCS: 20610; 73030; 99213; J3301 ==

== ENCOUNTER 2024-10-04 08:02 | Outpatient (CLI) | payer MEDICAID, SELFPAY ==
--- NOTE | 2024-10-04 08:07 | MR_ITS ---
WS: [id number] MRI LEFT KNEE NONCONTRAST TECHNIQUE: Axial PD, coronal PD fat sat, coronal PD, sagittal PD, and sagittal PD fat-sat images obtained. CLINICAL INFORMATION: ACUTE PAIN OF L KNEE COMPARISON: None. 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 Distal quadriceps and patella tendons are intact. Hypertrophic patella. Moderate suprapatellar effusion. Medial and lateral patellar retinaculum are intact. Grade IV chondromalacia patella. ACL and PCL appear intact. Hypertrophic changes along the joint line. Normal ACL and PCL. Edema within the lateral femoral condyle extending to the intercondylar notch. This may be degenerative or due to recent contusion. Recommend correlation for trauma. Chronic desiccation of the medial and lateral meniscus. No acute appearing meniscal tears. Lateral collateral ligament appears intact. Small ganglion cysts along the fibular head. Medial collateral ligament appears intact. MR/MR knee LT wo con* [id number] IMPRESSION: 1. ACL and PCL appear intact. 2. Moderate to advanced tricompartmental arthritis advanced for patient this a ge. 3. Moderate suprapatellar effusion. 4. Grade IV chondromalacia patella. 5. Chronic desiccation of the medial and lateral meniscus. No acute appearing meniscal tears. 6. Edema within the lateral femoral condyle extending to the intercondylar not ch likely degenerative or possibly due to recent contusion. Recommend correlati on with recent trauma. Outbridge grading: grade IV: full-thickness cartilage loss with underlying bone reactive changes
== END 2024-10-04 08:03 | disposition home or self-care (01) ==
PROVIDERS: PCP Family Medicine; Visit Provider Family Medicine
DX: M17.12 Unilateral primary osteoarthritis, left knee (principal); M25.462 Effusion, left knee; M22.42 Chondromalacia patellae, left knee; M23.362 Other meniscus derangements, other lateral meniscus, left knee; M23.332 Other meniscus derangements, other medial meniscus, left knee; R93.6 Abnormal findings on diagnostic imaging of limbs; M89.38 Hypertrophy of bone, other site; M67.462 Ganglion, left knee
CPT/HCPCS: 73721

== ENCOUNTER → 2024-10-12 08:49 | Outpatient (BNVA) | payer MEDICAID, SELFPAY | PROVIDERS: PCP Family Medicine; Visit Provider Nurse Practitioner Women's Health | DX: R30.0 Dysuria (principal) | CPT/HCPCS: 84315; 87086 ==

== ENCOUNTER → 2024-11-24 09:49 | Outpatient (BNVA) | payer MEDICAID, SELFPAY | PROVIDERS: PCP Family Medicine; Visit Provider Student in an Organized Health Care Education/Training Program | DX: M17.12 Unilateral primary osteoarthritis, left knee (principal) | CPT/HCPCS: 20610; 73560; 73565; 99214; J3301; J9999 ==

== ENCOUNTER → 2025-02-25 08:26 | Outpatient (BNVA) | payer MEDICAID, SELFPAY | PROVIDERS: PCP Family Medicine; Visit Provider Physician Assistant | DX: M19.012 Primary osteoarthritis, left shoulder (principal); M19.011 Primary osteoarthritis, right shoulder; M75.40 Impingement syndrome of unspecified shoulder | CPT/HCPCS: 20610; 73030; 99213; J3301; J9999 ==